=== PATIENT | male | born 1980 | race Caucasian/White ===

== ENCOUNTER 2017-09-26 21:33 | Emergency (ER) | payer MEDICARE, MEDICAID, SELFPAY ==
[2017-09-26 21:34] VITALS: BP 183/122; PULSE 98; RESP 20; TEMP 37.2; O2SAT 98
[2017-09-26 21:57] LABS: Bacteria 0 SEEN /hpf (None Seen); Red Blood Cells-Urine 0 SEEN /hpf (0-5); Squamous Epithelial Cells - UA 0 SEEN /hpf (0-5)
[2017-09-26 22:04] LABS: Color, Urine Yellow (Yellow); Glucose, Dipstick Normal (Normal); Ketone-Dipstick 5 mg/dl (Negative); Leukocyte Esterase-Dipstick 100 /ul (Negative); Nitrite-Dipstick Negative (Negative); Occult Blood-Urine 10 /ul (Negative); Protein-Dipstick 15 mg/dl (Negative); Specific Gravity, Urine 1.015 (1.002-1.030); Urine Bilirubin Dipstick Negative (Negative); Urine Clarity Sl. Cloudy (Clear); Urine Urobilinogen Normal (Normal); Urine pH 6.5 (5.0 - 8.0)
[2017-09-26 22:12] LABS: Mucous, Urine RARE /hpf (<or=2+)
[2017-09-26 22:13] LABS: Hyaline Cast 0-5 SEEN /lpf (0-5)
[2017-09-26 22:14] LABS: White Blood Cells 0-5 SEEN /hpf (0-5)
--- NOTE | 2017-09-26 22:26 | CT_ITS ---
STUDY: CT ABDOMEN AND PELVIS WITHOUT CONTRAST REASON FOR EXAM: Male, 37 years old. RIGHT SIDED ABD PAIN X SEVERAL DAYS, HX KS, HTN, GB RADIATION DOSAGE (If Supplied By Facility): CTDIvol = ( 10.20 ) mGy, DLP = ( 530.21 ) mGycm TECHNIQUE: Transaxial images were obtained from the dome of the diaphragm to the symphysis pubis without oral contrast, and without intravenous contrast. Sagittal and coronal images were reconstructed. Individualized dose optimization techniques were used for this CT. COMPARISON: CT Abdomen/Pelvis Jul 23 2017 11:34pm FINDINGS: The visualized lung bases are unremarkable. The visualized portions of the heart are within normal limits. Normal liver. There are surgical clips in the gallbladder fossa consistent with a prior cholecystectomy. Normal spleen. Normal pancreas. Normal bilateral adrenal glands. Normal right kidney. Normal left kidney. Normal visualized stomach. Normal small intestine. There is wall thickening of the rectosigmoid colon. There is also questionable inflammation around the colon. This can suggest a colitis. This can also suggest incomplete distension of the colon. There is non-visualization of the appendix. Stool throughout the colon. Normal abdominal aorta. Normal inferior vena cava. Normal retroperitoneum. Normal urinary bladder. There are prostatic calcifications. There is a small umbilical hernia containing fat. Normal osseous structures. CT/Abdomen/Pelvis without Cont IMPRESSION: There is wall thickening of the rectosigmoid colon. There is also questionable inflammation around the colon. This can suggest a colitis. This can also suggest incomplete distension of the colon. Constipation. Cholecystectomy. There is an umbilical hernia containing fat. There is no bowel involvement. There is no incarceration. There is no findings suggesting that this is causing a bowel obstruction. Electronically Signed: Misbah Eaton MD at 23:38 EDT , Service support ,
--- NOTE | 2017-09-26 22:28 | ED.VISSUMM ---
- ER Visit Summary Date of Service: 09/26/17 Chief Complaint: Right flank pain History of Present Illness: The patient is a 37 M presenting with right flank pain ?2-3 days. Patient has history of kidney stones and states this feels similar. He has nausea with no vomiting. He denies blood in his urine. He states he has tried ibuprofen, Tylenol at home with no relief. He states he has required lithotripsy in the past. No other complaints. Physical Examination: Vitals are stable. Patient is afebrile. Alert no acute distress. HEENT exam is unremarkable. Neck is supple. Lungs are clear and equal bilaterally. Heart is regular rate and rhythm. Abdomen is soft right upper quadrant tenderness, no rebound or guarding Back: mild right CVA tenderness Extremities are unremarkable. Skin is warm and dry. No rash Remainder of exam is unremarkable. Emergency Department Course and Treatment: Patient is given IV fluids, Dilaudid, Zofran. CBC showed a white count of 12.5, platelets 125. This is similar to previous. Chemistries show potassium 3.4. Liver enzymes and lipase are normal. Urinalysis shows trace blood, 0-[address] abdomen pelvis shows there is wall thickening of the rectosigmoid colon. There is also questionable inflammation around the colon. This can suggest a colitis. Constipation. Cholecystectomy. There is an umbilical hernia containing fat. There is no bowel involvement. There is no incarceration. There is no findings suggesting that this is causing a bowel obstruction. Patient is resting comfortably in the emergency department. Repeat abdominal exam is soft with mild tenderness, no rebound or guarding. He is given prescription for Cipro, Flagyl, MiraLAX. Advised to follow-up with Dr. Grant his primary care physician. Advised return to ED for any worsening complaints. Disposition: Discharge home Impression: Colitis, constipation This note was generated with [employer] dictation software. It may contain incorrect words, spelling, and punctuation that were not noted in review of the chart prior to signing ED Disposition - Plan for ED Patient: Disposition: Home or Assisted Living Chief Complaint: Flank Pain Instructions: ED Constipation Prescriptions: Metronidazole [Flagyl] 500 mg PO Q8 #21 tablet Polyethylene Glycol 3350 [Miralax] 17 gm PO DAILY #10 packet Ciprofloxacin [Cipro] 500 mg PO BID #14 tablet Referrals: Ghassan Coronado MD [Primary Care Provider] -
[2017-09-26 22:55] VITALS: BP 165/92; PULSE 95; RESP 14; O2SAT 99
[2017-09-26 22:56] LABS: Absolute Lymphocyte Count 2.01 X10^3/ul (0.83-4.51); Basophil# 0.03 X10^3/uL; Basophil% 0.2 % (0-1); Eosinophil# 0.43 X10^3/uL; Eosinophils% 3.4 % (0-5); Hematocrit 44.4 % (40-54); Hemoglobin 14.5 g/dl (13.0-16.5); Lymphocyte # 2.01 X10^3/ul (4.0); Mean Corp Hgb Conc 32.7 g/gl (32-36); Mean Corpuscular Hgb 30.1 pg (27.0-32.0); Mean Corpuscular Volume 92.3 fL (80-94); Monocyte# 1.07 X10^3/uL; Monocyte% 8.5 % (0-10); Neutrophil # 8.97 X10^3/uL (2.7-7.7); Neutrophil % 71.7 % (47-70); Platelet Count 125 K/mm3 (150-450); RBC Distribution Width CV 14.5 % (11.6-14.6); RBC Distribution Width SD 49.2 fl (35.1-43.9); Red Blood Count 4.81 M/mm3 (4.6-6.2); White Blood Count 12.5 K/mm3 (4.4-11.0)
[2017-09-26 22:57] LABS: Differential Indicated SCAN CRITERIA MET; Mean Platelet Vol. 14.1 fl (6.2-12.0); POSITIVE COUNT NO; POSITIVE DIFFERENTIAL NO; POSITIVE MORPHOLOGY YES
[2017-09-26 22:59] LABS: AST(SGOT) 9 U/L (15-37); Alanine Aminotransfer ALT/SGPT 21 U/L (16-61); Albumin, Serum 3.9 g/dL (3.2-5.0); Alkaline Phosphatase 87 U/L (45-117); Anion Gap 7 (5-15); BUN 7 mg/dL (7-18); Calcium,Total 8.3 mg/dL (8.5-10.1); Chloride 104 mmol/L (98-107); Creatinine, Serum 0.87 mg/dL (0.70-1.30); EST Glomerular Filtration Rate 104 mL/min (>60); Est Glom Filt Rate - Afr Amer 126 mL/min (>60); Estimated Creatinine Clearance 115.12 ml/min; Globulin 3.9 g/dL (2.2-4.2); Glucose 88 mg/dL (74-106); Lipase 106 U/L (73-393); Potassium 3.4 mmol/L (3.5-5.1); Protein, Total 7.8 g/dL (6.4-8.2); Sodium Level 141 mmol/L (136-145)
[2017-09-26] MEDS: Ondansetron 4 MG/2 ML Vial IV (23:03)
[2017-09-26] MEDS: HYDROmorphone 1 MG/ML Syringe 0.5 MG IV (23:03)
[2017-09-26] MEDS: 0.9% Normal Saline 1,000 ML 250 ML IV (23:03)
--- NOTE | 2017-09-26 23:44 | ED.RN ---
PT RINGS OUT REQUESTING PAIN MEDICATION, DR. MEEKS MADE AWARE.
--- NOTE | 2017-09-27 | ED.DEP ---
ED Disposition - Plan for ED Patient: Chief Complaint: Flank Pain Instructions: ED Constipation Prescriptions: Metronidazole [Flagyl] 500 mg PO Q8 #21 tablet Polyethylene Glycol 3350 [Miralax] 17 gm PO DAILY #10 packet Ciprofloxacin [Cipro] 500 mg PO BID #14 tablet Referrals: Ghassan Coronado MD [Primary Care Provider] -
[2017-09-27] MEDS: Ciprofloxacin 500 MG Tablet PO (00:11)
[2017-09-27 00:13] VITALS: PULSE 89; RESP 14; O2SAT 97
== END 2017-09-27 00:14 | disposition home or self-care (01) ==
PROVIDERS: Emergency Provider Emergency Medicine; Family Provider Family Medicine; PCP Family Medicine
DX: K52.9 Noninfective gastroenteritis and colitis, unspecified (principal); K59.00 Constipation, unspecified; K42.9 Umbilical hernia without obstruction or gangrene; Z87.442 Personal history of urinary calculi; Z72.0 Tobacco use
CPT/HCPCS: 74176; 80053; 81001; 83690; 85025; 96361; 96374; 96375; 99284; J7030; A4216; J2405

== ENCOUNTER 2017-12-17 11:55 | Emergency (ER) | payer MEDICARE, MEDICAID, SELFPAY ==
--- NOTE | 2017-12-17 11:55 | DT_ITS ---
This patient was seen during an EMR downtime December 17, 2017 - December 24, 2017. This patient may have a combination of paper and electronic documentation or all paper documentation. All documentation is viewable within the e-chart portion of [employer] for each patient visit.
--- NOTE | 2017-12-17 13:52 | CT_ITS ---
STUDY: CT ABDOMEN AND PELVIS WITHOUT CONTRAST REASON FOR EXAM: Male, 37 years old. Left flank pain. RADIATION DOSAGE (If Supplied By Facility): CTDIvol = ( 14.65 ) mGy, DLP = ( 783.16 ) mGycm TECHNIQUE: Transaxial images were obtained from the dome of the diaphragm to the symphysis pubis without oral contrast, and without intravenous contrast. Sagittal and coronal images were reconstructed. Individualized dose optimization techniques were used for this CT. COMPARISON: September 26, 2017 FINDINGS: There is minimal stable bibasilar atelectasis and/or scarring. The visualized portions of the heart are within normal limits. Normal liver. There are surgical clips in the gallbladder fossa consistent with a prior cholecystectomy. Normal spleen. Normal pancreas. Normal bilateral adrenal glands. Normal right kidney. Normal left kidney. Normal visualized stomach. Normal small intestine. Normal colon. The appendix appears to be surgically absent. Normal abdominal aorta. Normal inferior vena cava. Normal retroperitoneum. Normal urinary bladder. Normal abdominal wall. Normal osseous structures. CT/Abdomen/Pelvis without Cont IMPRESSION: No acute intra-abdominal process. Electronically Signed: Natalie Holder MD at 16:51 EDT Tel , Service support ,
[2017-12-20 11:02] LABS: Anion Gap 7 (5-15); BUN 11 mg/dL (7-18); BUN/Creat Ratio 13.3 RATIO (10-20); Calcium,Total 8.8 mg/dL (8.5-10.1); Chloride 105 mmol/L (98-107); Creatinine, Serum 0.83 mg/dL (0.70-1.30); EST Glomerular Filtration Rate 110 mL/min (>60); Est Glom Filt Rate - Afr Amer 133 mL/min (>60); Glucose 86 mg/dL (74-106); Potassium 3.7 mmol/L (3.5-5.1); Sodium Level 143 mmol/L (136-145)
[2017-12-20 16:01] LABS: Basophil% 0.4 % (0-1); Differential Indicated SCAN CRITERIA MET; Hematocrit 46.7 % (40-54); Hemoglobin 15.6 g/dl (13.0-16.5); Lymphocyte % 23.5 % (19-41); Mean Corp Hgb Conc 33.4 g/gl (32-36); Mean Corpuscular Hgb 30.8 pg (27.0-32.0); Mean Corpuscular Volume 92.3 fL (80-94); Mean Platelet Vol. 14.8 fl (6.2-12.0); Monocyte% 12.5 % (0-10); Neutrophil % 57.6 % (47-70); POSITIVE COUNT YES; POSITIVE DIFFERENTIAL NO; POSITIVE MORPHOLOGY YES; Platelet Count 92 K/mm3 (150-450); RBC Distribution Width CV 14.5 % (11.6-14.6); RBC Distribution Width SD 47.5 fl (35.1-43.9); White Blood Count 7.7 K/mm3 (4.4-11.0)
[2017-12-20 16:02] LABS: Absolute Lymphocyte Count 1.82 X10^3/ul (0.83-4.51); Absolute Neutrophil Count 4.5 X10^3/uL (2.0-7.7); Basophil# 0.03 X10^3/uL; Eosinophil# 0.46 X10^3/uL; Lymphocyte # 1.82 X10^3/ul (4.0); Monocyte# 0.97 X10^3/uL; Neutrophil # 4.45 X10^3/uL (2.7-7.7)
[2017-12-20 18:10] LABS: Bacteria 0 SEEN /hpf (None Seen); Mucous, Urine 0 SEEN /hpf (<or=2+); Red Blood Cells-Urine 0 SEEN /hpf (0-5); White Blood Cells 0 SEEN /hpf (0-5)
[2017-12-20 18:24] LABS: Color, Urine Yellow (Yellow); Glucose, Dipstick NEGATIVE (Normal); Ketone-Dipstick Negative (Negative); Leukocyte Esterase-Dipstick Negative /ul (Negative); Nitrite-Dipstick Negative (Negative); Occult Blood-Urine Negative /ul (Negative); Protein-Dipstick 30 mg/dl (Negative); Squamous Epithelial Cells - UA 0-5 SEEN /hpf (0-5); Urine Bilirubin Dipstick Negative (Negative); Urine Clarity Clear (Clear); Urine Urobilinogen Normal (Normal)
== END 2017-12-17 14:44 | disposition home or self-care (01) ==
LOC: ED 12-19 12:25
PROVIDERS: Emergency Provider Emergency Medicine; Family Provider Family Medicine; PCP Family Medicine
DX: M54.5 Low back pain (principal); I10 Essential (primary) hypertension; E03.9 Hypothyroidism, unspecified; F32.9 Major depressive disorder, single episode, unspecified; F17.210 Nicotine dependence, cigarettes, uncomplicated; Z87.442 Personal history of urinary calculi; Z79.899 Other long term (current) drug therapy
CPT/HCPCS: 36415; 74176; 80048; 81001; 85025; 96374; 96375; 99283; J7030; A4216; J2405

== ENCOUNTER 2018-12-17 11:24 | Emergency (ER) | payer MEDICARE, MEDICAID, SELFPAY ==
[2018-12-17 11:26] VITALS: BP 165/115; PULSE 109; RESP 16; TEMP 36.1; O2SAT 99; BMI 28.0
--- NOTE | 2018-12-17 11:32 | CT_ITS ---
STUDY: CT ABDOMEN AND PELVIS WITHOUT CONTRAST REASON FOR EXAM: Male, 38 years old. Right flank pain radiating anteriorly. RADIATION DOSAGE (If Supplied By Facility): CTDIvol = ( 13.60 ) mGy, DLP = ( 733.94 ) mGycm TECHNIQUE: Transaxial images were obtained from the dome of the diaphragm to the symphysis pubis without oral contrast, and without intravenous contrast. Sagittal and coronal images were reconstructed. Individualized dose optimization techniques were used for this CT. COMPARISON: Comparison is made with prior study dated December 17, 2017. FINDINGS: There now is evidence of a 1.3 cm x 3.1 cm inhomogeneous nodular density along the medial aspect of the lingular segment of the left upper lobe. This abuts the mediastinum. This may represent an area of scarring although a mass lesion cannot be excluded. The visualized portions of the heart are within normal limits. Normal liver. There are surgical clips in the gallbladder fossa consistent with a prior cholecystectomy. Normal spleen. Normal pancreas. Normal bilateral adrenal glands. There is fullness of the right renal pelvis. No liliam hydronephrosis is seen. A punctate calculus is seen in the posterior midpole calyx of the left kidney. Normal visualized stomach. Normal small intestine. Normal colon. There are surgical clips in the region of the appendix consistent with a prior appendectomy. Normal abdominal aorta. Normal inferior vena cava. Normal retroperitoneum. The urinary bladder is only partially filled. There is evidence of a bladder wall thickening. The prostate measures 2.4 cm x 4.7 cm. There is a small umbilical hernia containing fat. Small bilateral inguinal hernias containing fat. Normal osseous structures. CT/Abdomen/Pelvis without Cont IMPRESSION: No evidence of obstructive uropathy. 1.3 cm x 3.1 cm inhomogeneous nodular density in the posterior medial aspect of the lingular segment of the left upper lobe. Follow-up is recommended. Electronically Signed: Reza Zhou, at 12:46 EDT , Service support ,
--- NOTE | 2018-12-17 11:39 | ED.DCSUM_ITS ---
History of Present Illness Chief Complaint: Flank Pain Informant: Patient Onset: Days - Several days prior to presentation Context: Sudden Onset Timing: Continuous Quality: Sharp Location: Right flank pain radiating to the right lower quadrant Current Severity: Moderate Maximum Severity: Severe Worsened by: Nothing Relieved by: Nothing Associated Symptoms: Dysuria Narrative: Patient is a 38-year-old male presents with abrupt onset of right flank pain rating anteriorly. Associate with nausea without vomiting diarrhea. He denies hematemesis or melena. He denies hematuria. He does report dysuria and frequency. He states the pain is similar to ureteral stone, which required lithotripsy many years ago. He denies history of inflammatory bowel disorder. He denies change in bowels i.e. consistency, frequency, caliber or color he denies history of STI. He denies testicular pain. He denies mass or bulge in the right inguinal area. He denies history of hernia. Prior similar symptoms: Yes - Ureteral lithiasis Recent Illness/Hospitalization: No - Past Medical History (1) Appendicitis Status: Acute (2) DJD (degenerative joint disease) Status: Chronic (3) Kidney stone Status: Chronic Past Medical History - Allergies and Home Meds Allergies/Adverse Reactions: Allergies fentanyl Adverse Reaction (Verified 12/17/18 11:24) Other ketorolac [From Toradol] Adverse Reaction (Verified 12/17/18 11:24) HEADACHES IF GIVEN TO MUCH tramadol [From Ultram] Adverse Reaction (Verified 12/17/18 11:24) HEADACHES IF GIVEN TO MUCH Primary Care Physician: Ghassan Coronado MD [Primary Care Provider] - Prior records reviewed: Yes Surgical History: cholecystectomy Lives: Spouse/ Significant Other Smoking Status: Current every day smoker Alcohol: Rare - Family History Maternal Family History: Reports: No pertinent history Review of Systems General: Denies: Chills, Fever, Sweats Eyes: Denies: Visual changes - bilaterally, Diplopia ENT: Denies: Rhinorrhea, Sore throat Cardiovascular: Denies: Chest pain, Palpitations Respiratory: Denies: Dyspnea, Cough, Dyspnea on exertion Gastrointestinal: Reports: Abdominal pain, Nausea Genitourinary: Denies: Dysuria, Hematuria, Frequency Musculoskeletal: Reports: Back pain - Right flank. Denies: Myalgias, Arthralgias, Neck pain, Swelling, Extremity Pain Skin: Denies: Rash, Wounds Neurological: Denies: Headache, Weakness, Numbness Hematologic: Denies: Easy bruising, Easy bleeding Allergy: Denies: Uticaria, Swelling of the mouth Physical Exam Vital Signs/Narrative: Vital Signs Temp Pulse Resp BP Pulse Ox 12/17/18 11:26 97 F L 109 H 16 165/115 H 99 Inital Vital Signs reviewed: Yes General: Well nourished, Well developed, No Acute Distress Head: Normocephalic, Atraumatic Eyes: Perrl, EOMI ENT: Moist mucous membranes, No rhinorrhea Neck: Supple, Nontender Cardiovascular: Regular rate, Regular rhythm, No murmurs Respiratory: No distress, CTA bilaterally, Chest nontender Abdomen: Soft, Nondistended, Normal bowel sounds, No masses, Tender - Tenderness to deep palpation over the right kidney.. Negative for: Nontender Back: CVA tenderness - Equivocal right CVA tenderness. Negative for: Nontender, Normal Inspection, Spinal tenderness, - Extremities: Nontender, No edema Skin: Normal color, No rash, No Trauma. Negative for: Cyanosis, Diaphoresis, Jaundice Neurological: Alert, Oriented x3, Cranial nerves II-XII grossly intact, Normal Strength, Normal Sensation, Normal Gait Psychological: Normal affect, Normal Mood Diagnostic/Tx/Re-eval Impressions Abdomen/Pelvis CT 12/17/18 11:32 IMPRESSION: No evidence of obstructive uropathy. 1.3 cm x 3.1 cm inhomogeneous nodular density in the posterior medial aspect of the lingular segment of the left upper lobe. Follow-up is recommended. Electronically Signed: Reza Zhou, at 12:46 EDT , Service support , 12/17/18 11:32 Abdomen/Pelvis without Cont [CT] Stat Laboratory Results 12/17/18 12/17/18 12/17/18 11:35 11:38 11:38 WBC 9.7 RBC 5.29 Hgb 16.4 Hct 48.4 MCV 91.5 MCH 31.0 MCHC 33.9 RDW 14.3 RDW Differential 48.3 H Plt Count 122 L MPV 13.5 H Immature Gran % (Auto) 0.400 Neut % (Auto) 61.2 Lymph % (Auto) 22.5 [place] % (Auto) 10.0 Eos % (Auto) 5.2 H Baso % (Auto) 0.7 Absolute Neuts (auto) 5.9 Absolute Lymphs (auto) 2.17 Total Counted Not Reportable Sodium 139 Potassium 3.9 Chloride 103 Carbon Dioxide 29.0 Anion Gap 7 BUN 8 Creatinine 0.91 Estim Creat Clear Calc 108.99 Est GFR (MDRD) Af Amer 119 Est GFR (MDRD) Non-Af 98 BUN/Creatinine Ratio 8.8 L Glucose 87 Calcium 8.8 Urine Color Yellow Urine Clarity Clear Urine pH 7.0 Ur Specific [place] 1.010 Urine Protein 15 H Urine Glucose (UA) Normal Urine Ketones Negative Urine Occult Blood Negative Urine Nitrite Negative Urine Bilirubin Negative Urine Urobilinogen Normal Ur Leukocyte Esterase Negative Urine RBC 0 SEEN Urine WBC 0 SEEN Ur Squamous Epith Cells 0 SEEN Urine Bacteria 0 SEEN Urine Mucus 0 SEEN - Medical Decision Making Differential diagnosis would include ureterolithiasis, inflammatory bowel disease, pyelonephritis, STI. Patient is status post appendectomy. To evaluate patient's symptoms CT of the abdomen pelvis without contrast was ordered as well as basic metabolic panel to assess renal function and electrolytes, CBC to assess white count and H&H as well as UA to evaluate for infection. If initial work-up is negative will send urine for chlamydia and gonorrhea. Patient's abdominal portion is negative. There is a 1.3 x 3.1 inhomogeneous nodule noted left lower lobe near the lingular segment. This will need follow- up. Patient was referred to Dr. Giraldo. Because of his abdominal pain is unknown. ED Disposition - Plan for ED Patient: Disposition: Home or Assisted Living Diagnosis: Acute right flank pain, Right-sided abdominal pain of unknown cause, Pulmonary nodule seen on imaging study Instructions: ED Flank Pain Uncertain Cause, ED Nodule Solitary Pulmonary Referrals: Ghassan Coronado MD [Primary Care Provider] - Frankie Giraldo DO [STAFF PHYSICIAN] - 5-7 Days Additional Instructions: The cause of your right flank and right abdominal pain is unknown. A nodule was found left side of your lower lung. You were referred to Dr. Frankie Giraldo for further testing.
[2018-12-17 11:46] LABS: Absolute Lymphocyte Count 2.17 X10^3/ul (0.83-4.51); Absolute Neutrophil Count 5.9 X10^3/uL (2.0-7.7); Basophil# 0.07 X10^3/uL; Basophil% 0.7 % (0-1); Eosinophils% 5.2 % (0-5); Hematocrit 48.4 % (40-54); Hemoglobin 16.4 g/dl (13.0-16.5); Lymphocyte # 2.17 X10^3/ul (4.0); Lymphocyte % 22.5 % (19-41); Mean Corp Hgb Conc 33.9 g/gl (32-36); Mean Corpuscular Volume 91.5 fL (80-94); Mean Platelet Vol. 13.5 fl (6.2-12.0); Monocyte# 0.97 X10^3/uL; Neutrophil # 5.91 X10^3/uL (2.7-7.7); Neutrophil % 61.2 % (47-70); POSITIVE COUNT NO; POSITIVE DIFFERENTIAL NO; POSITIVE MORPHOLOGY NO; Platelet Count 122 K/mm3 (150-450); RBC Distribution Width CV 14.3 % (11.6-14.6); RBC Distribution Width SD 48.3 fl (35.1-43.9); Red Blood Count 5.29 M/mm3 (4.6-6.2); White Blood Count 9.7 K/mm3 (4.4-11.0)
[2018-12-17] MEDS: Ondansetron 4 MG/2 ML Vial IV (11:47)
[2018-12-17] MEDS: 0.9% Normal Saline 1,000 ML 250 ML IV (11:47)
[2018-12-17] MEDS: Ketorolac 30 MG/ML Syringe 15 MG IV (11:48)
[2018-12-17 11:59] LABS: Anion Gap 7 (5-15); BUN 8 mg/dL (7-18); BUN/Creat Ratio 8.8 RATIO (10-20); Calcium,Total 8.8 mg/dL (8.5-10.1); Chloride 103 mmol/L (98-107); Creatinine, Serum 0.91 mg/dL (0.70-1.30); EST Glomerular Filtration Rate 98 mL/min (>60); Est Glom Filt Rate - Afr Amer 119 mL/min (>60); Estimated Creatinine Clearance 108.99 ml/min; Glucose 87 mg/dL (74-106); Potassium 3.9 mmol/L (3.5-5.1); Sodium Level 139 mmol/L (136-145)
[2018-12-17 12:02] LABS: Bacteria 0 SEEN /hpf (None Seen); Mucous, Urine 0 SEEN /hpf (<or=2+); Red Blood Cells-Urine 0 SEEN /hpf (0-5); Squamous Epithelial Cells - UA 0 SEEN /hpf (0-5); White Blood Cells 0 SEEN /hpf (0-5)
[2018-12-17 12:04] LABS: Color, Urine Yellow (Yellow); Glucose, Dipstick Normal (Normal); Ketone-Dipstick Negative (Negative); Leukocyte Esterase-Dipstick Negative /ul (Negative); Nitrite-Dipstick Negative (Negative); Occult Blood-Urine Negative /ul (Negative); Protein-Dipstick 15 mg/dl (Negative); Urine Bilirubin Dipstick Negative (Negative); Urine Clarity Clear (Clear); Urine Urobilinogen Normal (Normal)
[2018-12-17 13:07] VITALS: BP 172/125; BP 176/123
[2018-12-17 13:08] VITALS: BP 176/125; BP 182/119; PULSE 91; RESP 18; O2SAT 100
--- NOTE | 2018-12-17 13:08 | ED.RN ---
BP CHECKED IN BOTH ARMS, ALL READINGS OUTSIDE NORMAL LIMITS, DR HUA NOTIFIED. WILL CONTINUE TO MONITOR.
[2018-12-17 13:42] VITALS: BP 186/124; BP 188/125; PULSE 89; RESP 18; O2SAT 100
[2018-12-17] MEDS: cloNIDine HCl 0.1 MG Tablet 0.2 MG PO (13:59)
--- NOTE | 2018-12-17 14:12 | CT_ITS ---
STUDY: CT CHEST WITH CONTRAST REASON FOR EXAM: Male, 38 years old. Lung nodule seen on CT RADIATION DOSAGE (If Supplied By Facility): CTDIvol = ( 16.72 ) mGy, DLP = ( 613.11 ) mGycm TECHNIQUE: Transaxial imaging was performed following intravenous administration of 100 IV Isovue 370. Multiplanar coronal and sagittal images were reformatted. Individualized dose optimization techniques were used for this CT. COMPARISON: Lung bases April 07, [address] scan abdomen, September 26, 2017, December 17, 2017 and December 17, 2018 FINDINGS: There is a pattern of groundglass opacities suggestive of areas of air trapping. Within the left lingula there is a lobulated nodular density measuring 1.3 x 3.1 x 2.1 cm. This sits right at the edge of the diaphragm and the left side pericardial fat. There is mild cardiac enlargement There is a 9.9 mm AP window lymph node. There is a subcarinal lymph node measuring 9.3 mm. Normal hilar regions. Normal enhanced pulmonary arteries. Normal aorta arch and descending thoracic aorta. There are multi-level degenerative changes of the thoracic spine. The liver is enlarged and fatty infiltrated. The gallbladder is been removed. There is moderate splenomegaly. There is a anteriorly located splenule measuring 1.2 cm. There is postoperative change in the gallbladder fossa status post cholecystectomy. CT/Chest WITH Contrast IMPRESSION: There is a newly visualized nodular density within the low aspect of the lingula. In the absence of infectious symptoms as follows into the range of suspicious for possible neoplasm given the size and nodular appearance recommend consideration for further evaluation with PET scan. There is a pattern of air trapping in the lungs which is suggestive of underlying chronic obstructive pulmonary disease. Mild hepatomegaly with hepatic steatosis Moderate splenomegaly. Spleen measures 13.2 x 13.0 cm Status post cholecystectomy. Mild cardiac enlargement. Electronically Signed: Maribell Johnson MD at 15:42 EDT Tel , Service support ,
--- NOTE | 2018-12-17 14:21 | ED.RN ---
PHONE CALL FOR PT TO F/U WITH CHARRER IS SundayDECEMBER 24 AT 1045. PT AND HIS ARE AWARE.
[2018-12-17 14:51] VITALS: BP 173/118; PULSE 87; RESP 18; O2SAT 97
[2018-12-17] MEDS: cloNIDine HCl 0.1 MG Tablet PO (15:10)
--- NOTE | 2018-12-17 15:51 | ED.VISSUMM ---
- ER Visit Summary Date of Service: 12/17/18 Chief Complaint: [] History of Present Illness: The patient is a 38 M [] Physical Examination: [] Test Results: [] Emergency Department Course and Treatment: [] Treatment Plan: [] Disposition: [] Impression: [] This note was generated with [employer] dictation software. It may contain incorrect words, spelling, and punctuation that were not noted in review of the chart prior to signing ED Disposition - Plan for ED Patient: Disposition: Home or Assisted Living Diagnosis: Acute right flank pain, Right-sided abdominal pain of unknown cause, Pulmonary nodule seen on imaging study, Accelerated hypertension Instructions: ED Flank Pain Uncertain Cause, ED Nodule Solitary Pulmonary, ED Hypertension New Begin Tx Prescriptions: Lisinopril [Prinivil] 10 mg PO DAILY #30 tablet Referrals: Frankie Giraldo DO [STAFF PHYSICIAN] - 5-7 Days Ghassan Coronado MD [Primary Care Provider] - 1-2 Weeks Additional Instructions: The cause of your right flank and right abdominal pain is unknown. A nodule was found left side of your lower lung. You were referred to Dr. Frankie Giraldo for further testing. Prescription was electronically transmitted to your designated pharmacy of choice.
--- NOTE | 2018-12-17 15:54 | ED.DCSUM_ITS ---
- ER Visit Summary Date of Service: 12/17/18 Chief Complaint: [] History of Present Illness: The patient is a 38 M [] Physical Examination: [] Test Results: [] Emergency Department Course and Treatment: [] Treatment Plan: [] Disposition: [] Impression: [] This note was generated with [employer] dictation software. It may contain incorrect words, spelling, and punctuation that were not noted in review of the chart prior to signing ED Disposition - Plan for ED Patient: Disposition: Home or Assisted Living Diagnosis: Acute right flank pain, Right-sided abdominal pain of unknown cause, Pulmonary nodule seen on imaging study, Accelerated hypertension Instructions: ED Flank Pain Uncertain Cause, ED Nodule Solitary Pulmonary, ED Hypertension New Begin Tx Prescriptions: Lisinopril [Prinivil] 10 mg PO DAILY #30 tablet Referrals: Frankie Giraldo DO [STAFF PHYSICIAN] - 5-7 Days Ghassan Coronado MD [Primary Care Provider] - 1-2 Weeks Additional Instructions: The cause of your right flank and right abdominal pain is unknown. A nodule was found left side of your lower lung. You were referred to Dr. Frankie Giraldo for further testing. Prescription was electronically transmitted to your designated pharmacy of choice.
[2018-12-17 16:08] VITALS: BP 169/118; PULSE 87; RESP 18; O2SAT 97
== END 2018-12-17 16:08 | disposition home or self-care (01) ==
PROVIDERS: Emergency Provider Emergency Medicine; Family Provider Family Medicine; PCP Family Medicine
DX: R91.1 Solitary pulmonary nodule (principal); K76.0 Fatty (change of) liver, not elsewhere classified; R16.2 Hepatomegaly with splenomegaly, not elsewhere classified; I11.9 Hypertensive heart disease without heart failure; R30.0 Dysuria; R35.0 Frequency of micturition; M19.90 Unspecified osteoarthritis, unspecified site; Z87.442 Personal history of urinary calculi; Z87.19 Personal history of other diseases of the digestive system; Z90.49 Acquired absence of other specified parts of digestive tract; Z79.899 Other long term (current) drug therapy; F17.200 Nicotine dependence, unspecified, uncomplicated
CPT/HCPCS: 71260; 74176; 80048; 81001; 85025; 96361; 96374; 96375; 99285; J7030; Q9967; A4216; J2405

== ENCOUNTER → 2018-12-24 11:19 | Outpatient (CLI) | payer MEDICARE, MEDICAID, SELFPAY ==
[2018-12-24 10:28] VITALS: BMI 26.6
[2018-12-24 11:47] LABS: Absolute Lymphocyte Count 1.77 X10^3/ul (0.83-4.51); Absolute Neutrophil Count 5.9 X10^3/uL (2.0-7.7); Basophil# 0.05 X10^3/uL; Basophil% 0.5 % (0-1); Eosinophil# 0.57 X10^3/uL; Eosinophils% 6.2 % (0-5); Hemoglobin 15.9 g/dl (13.0-16.5); Lymphocyte # 1.77 X10^3/ul (4.0); Lymphocyte % 19.3 % (19-41); Mean Corp Hgb Conc 33.8 g/gl (32-36); Mean Corpuscular Hgb 30.8 pg (27.0-32.0); Mean Corpuscular Volume 91.1 fL (80-94); Monocyte# 0.82 X10^3/uL; Monocyte% 8.9 % (0-10); Neutrophil # 5.92 X10^3/uL (2.7-7.7); Neutrophil % 64.7 % (47-70); POSITIVE COUNT NO; POSITIVE DIFFERENTIAL NO; POSITIVE MORPHOLOGY NO; Platelet Count 109 K/mm3 (150-450); RBC Distribution Width CV 14.2 % (11.6-14.6); RBC Distribution Width SD 47.6 fl (35.1-43.9); Red Blood Count 5.16 M/mm3 (4.6-6.2); White Blood Count 9.2 K/mm3 (4.4-11.0)
[2018-12-24 12:07] LABS: AST(SGOT) 10 U/L (15-37); Alanine Aminotransfer ALT/SGPT 25 U/L (16-61); Albumin, Serum 3.9 g/dL (3.2-5.0); Alkaline Phosphatase 89 U/L (45-117); Bilirubin, Direct 0.08 mg/dL (0.00-0.30); Globulin 3.6 g/dL (2.2-4.2); Protein, Total 7.5 g/dL (6.4-8.2)
== END ==
PROVIDERS: Family Provider Family Medicine; PCP Family Medicine; Referring Provider Internal Medicine Critical Care Medicine; Visit Provider Internal Medicine Critical Care Medicine
DX: D69.6 Thrombocytopenia, unspecified (principal); F17.210 Nicotine dependence, cigarettes, uncomplicated
CPT/HCPCS: 36415; 80076; 85025

== ENCOUNTER → 2019-01-06 07:28 | Outpatient (CLI) | payer MEDICARE, MEDICAID, SELFPAY ==
[2018-12-24 10:28] VITALS: BMI 26.6
--- NOTE | 2019-01-06 08:15 | PET_ITS ---
EXAMINATION: FDG PET CT INDICATIONS: A 38-year-old male with reported history of pulmonary nodularity. COMPARISON EXAMINATION: CT of the chest, abdomen and pelvis reports dated 12/17/18. NON-INDEX LESION SIZE SUV INTERPRETATION Right inguinal region superficial 32.1 mm (frame 62) 3.1 May necessitate histopathologic investigation TECHNIQUE: Following the intravenous administration of 15.94 mCi of F-18 deoxyglucose via the left hand, multiplanar image acquisitions of the neck, chest, abdomen and pelvis to level of mid thigh, obtained at one hour post radiopharmaceutical administration contemporaneously interpreted with the current CT of the neck, chest, abdomen and pelvis to level of mid thigh, dated 01/06/[address] of the chest, abdomen and pelvis reports dated 12/17/18 reveal: SERUM GLUCOSE LEVEL: 90 mg/dl. HEIGHT: 69 inches. WEIGHT: 215 lbs. FINDINGS: 1. The previously defined left lower anterior lung field-lingular parenchymal density defined on CT of the chest dated 12/17/18, is not clearly delineated in the CT component of the PET CT examination dated 01/06/19. 2. Normal physiologic distribution of the radiopharmaceutical is apparent in the hepatic (3.9) and splenic parenchyma, both renal units, bladder and visualized intestinal tract. There is uniform distribution of the radiopharmaceutical concentration defined in the visualized cerebellar hemispheres and cerebral cortical structures.? Diffuse intestinal tract activity is noted throughout all four quadrants of the abdominal-pelvic retroperitoneum, mesentery consistent with normal physiologic distribution of the radiopharmaceutical. Prominent radiopharmaceutical concentration is defined in the superficial right inguinal region generating a calculated maximum standard uptake value of 3.1. The maximal axial diameter of the superficially localized soft tissue density on review of CT of the pelvis dated 01/06/19 is 32.1 mm (transverse). Pertinent CT findings are as follows. CHEST: Bilateral axillary soft tissue densities with fatty hilus formation are non-glucose avid. There are no parenchymal densities-nodules defined in the right-left hemithorax demonstrating discernible increased glucose metabolism. The previously described parenchymal density noted on CT of the chest dated 12/17/18 within the context of the lingula is not apparent on the current examination. ABDOMEN AND PELVIS: The gallbladder is surgically absent. Right-left inguinal soft tissue densities are ametabolic. Subtle dystrophic calcification is manifest within the prostate gland without evidence of quantitatively significant increased glucose metabolism. SKELETAL: Degenerative changes defined in the cervical, thoracic and lumbar spine demonstrate no evidence for glucose hypermetabolism. PET/PET/CT Tumor Base -Thigh Init IMPRESSION: 1. Increased glucose metabolism manifest in the right inguinal region may be further investigated with clinical examination and potentially histopathologic analysis secondary to the quantitative degree of uptake. 2. Anatomic stability may be ensured in the left hemithorax-lingular region with repeat CT of the thorax in three-six months. (Gab, Seminars in Thoracic and Cardiovascular Surgery 14:292, 2002). 3. The previously described parenchymal density noted on CT of the chest dated 12/17/18 is not visualized on the current CT component of the FDG PET examination as defined. Electronic Signature Narciso Mendoza D.O. Electronically Signed: Narciso Mendoza DO at 10:50 EDT Tel , Service support ,
== END ==
PROVIDERS: Family Provider Family Medicine; PCP Family Medicine; Referring Provider Internal Medicine Critical Care Medicine; Visit Provider Internal Medicine Critical Care Medicine
DX: R91.1 Solitary pulmonary nodule (principal)
CPT/HCPCS: 78815; A9552; A4216

== ENCOUNTER → 2019-01-22 11:14 | Outpatient (CLI) | payer MEDICARE, MEDICAID, SELFPAY ==
--- NOTE | 2019-01-22 09:30 | MASS_PTH ---
PATIENT: FLY ALVAREZ LOC: [facility] U#:[id number] AGE/SX: 44/M ROOM: RE01/22/[address]: Dr. Jose Pastor MD : 1980 BED: DIS: SPEC #: [id number] RECD: 01/22/19 11:06 STATUS: HELADIO HENRRY #: [id number] ISMAEL: 01/22/19 09:[address]: Jose Pastor DEPT: SURGICAL PATHOLOGY RECD BY: Nahun Coleman ENTERED: 01/22/19 14:36 SP TYPE: Mass OTHR DR: Dr. Ghassan Coronado MD Tissues: Inguinal region, NOS Procedures: Surgery Specimen Level IV HEADER OPERATION: Excision right groin mass PRE-OP DIAGNOSIS: Right groin mass TISSUE SUBMITTED: Right groin mass MICROSCOPIC DIAGNOSIS Right groin mass, excision: Consistent with ruptured epidermal inclusion cyst with extensive fibrosis, chronic inflammation and reactive changes. SJ:samia 01/23/19 MICROSCOPIC DESCRIPTION Slides are reviewed. GROSS DESCRIPTION Received in fixative is one container labeled with the patient's name and designated right groin cyst. The specimen consists of three variable sized pieces of soft tissue measuring in aggregate 3.5 x 3.5 x 2 cm. Sections of the largest piece reveal a focal area of collapsed cyst measuring 1.5 cm in greatest dimension. The entire specimen is submitted in four cassettes. / SJ:samia 01/22/19 TC:5 CPT: 11037
[2019-01-22 09:49] VITALS: BMI 26.6
== END ==
PROVIDERS: Family Provider Family Medicine; PCP Family Medicine; Visit Provider Surgery
DX: R19.09 Other intra-abdominal and pelvic swelling, mass and lump (principal)
CPT/HCPCS: 88305

== ENCOUNTER 2020-12-28 14:47 | Emergency (ER) | payer MEDICARE, MEDICAID, SELFPAY ==
[2019-01-22 09:49] VITALS: BMI 26.6
[2020-12-28 14:48] VITALS: BP 158/110; PULSE 86; RESP 16; TEMP 37; O2SAT 99; BMI 28.6
--- NOTE | 2020-12-28 15:02 | CT_ITS ---
STUDY: CT ABDOMEN AND PELVIS WITHOUT CONTRAST REASON FOR EXAM: Male, 40 years old. Pain RADIATION DOSAGE (If Supplied By Facility): CTDIvol = ( 13.06 ) mGy, DLP = ( 662.36 ) mGycm TECHNIQUE: Transaxial images were obtained from the dome of the diaphragm to the symphysis pubis without oral contrast, and without intravenous contrast. Sagittal and coronal images were reconstructed. Individualized dose optimization techniques were used for this CT. COMPARISON: None. FINDINGS: The visualized lung bases are unremarkable. The visualized portions of the heart are within normal limits. Normal liver. There are surgical clips in the gallbladder fossa consistent with a prior cholecystectomy. Normal spleen. Normal pancreas. Normal bilateral adrenal glands. Normal right kidney. Normal left kidney. Normal visualized stomach. Normal small intestine. Normal colon. There are surgical clips in the region of the appendix consistent with a prior appendectomy. Normal abdominal aorta. Normal inferior vena cava. Normal retroperitoneum. Normal urinary bladder. There is a small umbilical hernia containing fat. Normal osseous structures. CT/Abdomen/Pelvis without Cont IMPRESSION: Normal unenhanced CT of the abdomen and pelvis. Electronically Signed: Narciso Joseph MD at 15:48 EDT Tel , Service support ,
--- NOTE | 2020-12-28 15:05 | EDS_ITS ---
HPI HPI - GI History of Present Illness Chief Complaint: GI Bleed Informant: patient Narrative Narrative: Patient has had nosebleeds, epigastric pain and dark tarry stools. This is been happening intermittently for 2 weeks. He states he has been getting multiple nosebleeds without any trauma. He denies any history of this. He does have a history of thrombocytopenia per his chart but his last platelet count was 109. He has been having some epigastric pain which she states is burning in nature. The dark tarry stools occurred after the nosebleeds. He has had a history of a cholecystectomy and appendectomy. He denies any history of colonoscopies. He states he has had about a 20 pound weight loss recently as well. He denies any fevers or night sweats. [facility] Medical History (Updated 12/28/20 @ 16:[address] Isaac Norman MD) Appendicitis Diarrhea DJD (degenerative joint disease) Kidney stone Lung nodule Home Medications sertraline 100 mg PO DAILY 12/22/16 [History Last Taken Unknown] omeprazole 20 mg PO DAILY #30 capsule 12/28/20 [Rx Last Taken Unknown] Allergy/AdvReac Type Severity Reaction Status Date / Time fentanyl AdvReac Other Verified 12/28/20 14:48 ketorolac [From Toradol] AdvReac HEADACHES Verified 12/28/20 14:48 tramadol [From Ultram] AdvReac HEADACHES Verified 12/28/20 14:48 Family History Grandmother Colon cancer Father Diabetes Kidney disease Hypertension Surgical History History of appendectomy History of cholecystectomy Social History Smoking Status: Former smoker Tobacco: How many years used: 21 second hand exposure: Yes alcohol intake: never substance use type: does not use ROS ROS ED Constitutional Constitutional ED: Denies chills or fever(s) Eyes Eyes: Denies blurry vision, change in vision or diplopia ENT ENT ED: Reports other Details: Epistaxis Cardiovascular Cardiovascular: Denies chest pain or palpitations Respiratory/Chest Respiratory/Chest: Denies cough, dyspnea or sputum Gastrointestinal Gastrointestinal: Reports abdominal pain, melena and other Genitourinary Genitourinary ED: Denies dysuria, hematuria or urinary frequency Musculoskeletal Musculoskeletal: Denies back pain or neck pain Integumentary Denies change in pigmentation or rash Neurologic Neurologic: Denies headache(s), numbness or weakness Psychiatric Psychiatric: Denies anxiety or depression Endocrine Endocrinology: Denies polydipsia or polyuria EXAM Physical Exam Const Vital Signs: 12/28/20 14:48 Temperature 98.6 F Temperature Source Temporal Pulse Rate 86 Respiratory Rate 16 Blood Pressure 158/110 H Blood Pressure Mean 126 Pulse Ox 99 Oxygen Delivery Method Room Air Positive well nourished and well developed General Appearance ED: well developed and NAD HEENT Reports moist mucous membranes HEENT Narrative: There is some dried blood in the nares bilaterally. No active bleeding. normocephalic and atraumatic; Negative for tenderness Eyes PERRL and EOMs intact bilaterally Neck supple and no JVD Chest Wall Chest: Negative for tenderness Resp normal respiratory effort and clear to auscultation bilaterally Effort and Inspection: Negative for respiratory distress Cardio regular rate, regular rhythm and no murmurs Rate: regular rate Rhythm: regular rhythm GI soft to palpation and non-distended Palpation: soft and tender epigastric Back/Spine no CVA tenderness and no thoracic nor lumbar tenderness Cervical Spine: Negative for cervical spine tenderness Extremity normal to inspection and full ROM General Extremety ED: Negative for tenderness Neuro oriented x3, CN's II-XII intact bilaterally and no sensory deficits noted Sensorium / Orientation: awake and alert Motor Exam: strength 5/5 throughout Psych mental status grossly normal Skin no rashes or lesions noted MDM MDM MDM Narrative Medical decision making narrative: Patient has a white blood cell count of 12.8 and a hemoglobin of 13.8. His platelet count is 142,000. INR and PTT are normal. His electrolytes and lipase are also normal. He was given a dose of IV Protonix. However, I feel that the darker stools are likely from swallowed blood from his nosebleeds. His vital signs and hemoglobin are normal. I feel he can be treated as an outpatient. They will continue with the saline nasal spray. He will be given ENT follow-up with Dr. Arteaga. I also sent home on a PPI. Lab Data Labs: Laboratory Results - last 24 hr 12/28/20 12/28/20 12/28/20 15:23 15:23 15:23 WBC 12.8 H RBC 4.54 L Hgb 13.8 Hct 41.6 MCV 91.6 MCH 30.4 MCHC 33.2 RDW Std Deviation 46.5 H RDW Coeff of Shlomo 13.8 Plt Count 142 L MPV 14.3 H Immature Gran % (Auto) 0.500 Neut % (Auto) 75.8 H Lymph % (Auto) 14.3 L [place] % (Auto) 7.0 Eos % (Auto) 1.8 Baso % (Auto) 0.6 Absolute Neuts (auto) 9.7 H Absolute Lymphs (auto) 1.83 Nucleated RBC % 0 PT 14.0 INR 1.1 APTT 24.1 Sodium 140 Potassium 3.7 Chloride 108 H Carbon Dioxide 24.0 Anion Gap 8 BUN 20 H Creatinine 1.05 Estim Creat Clear Calc 92.58 Est GFR (MDRD) Af Amer 100 Est GFR (MDRD) Non-Af 83 BUN/Creatinine Ratio 19.0 Glucose 100 Calcium 8.9 Total Bilirubin 0.40 AST 10 L ALT 22 Alkaline Phosphatase 78 Total Protein 7.8 Albumin 3.9 Globulin 3.9 Albumin/Globulin Ratio 1.0 Lipase 108 Radiography Diagnostic Testing: Radiology Impression Abdomen/Pelvis CT 12/28/20 15:02 IMPRESSION: Normal unenhanced CT of the abdomen and pelvis. Electronically Signed: Narciso Joseph MD at 15:48 EDT Tel , Service support , Discharge Plan Triage Chief Complaint: GI Bleed ED Provider: Isaac Norman Dx/Rx/DC Orders Clinical Impression: Epistaxis, Complaint of melena Instructions: ED Epistaxis (Adult) Prescriptions: New omeprazole 20 mg capsule,delayed release(DR/EC) 20 mg PO DAILY Qty: 30 RF: 0 No Action sertraline 100 MG tablet 100 mg PO DAILY RF: 0 Primary Care Provider: Ghassan Coronado Referrals: Ghassan Coronado MD [Primary Care Provider] - Disposition Disposition: Home, self care
[2020-12-28 15:34] LABS: Absolute Lymphocyte Count 1.83 X10^3/uL (0.83-4.51); Absolute Neutrophil Count 9.7 X10^3/uL (2.0-7.7); Basophil# 0.08 X10^3/uL; Basophil% 0.6 % (0-1); Eosinophil# 0.23 X10^3/uL; Eosinophils% 1.8 % (0-5); Hematocrit 41.6 % (40-54); Hemoglobin 13.8 g/dL (13.0-16.5); Lymphocyte # 1.83 X10^3/ul (0.83-4.51); Lymphocyte % 14.3 % (19-41); Mean Corp Hgb Conc 33.2 g/dL (32-36); Mean Corpuscular Hgb 30.4 pg (27.0-32.0); Mean Corpuscular Volume 91.6 fL (80-94); Mean Platelet Vol. 14.3 fl (6.2-12.0); Monocyte# 0.89 X10^3/uL; NRBC Flagged by Analyzer 0 % (0-5); Neutrophil # 9.67 X10^3/uL (2.7-7.7); Neutrophil % 75.8 % (47-70); Platelet Count 142 K/mm3 (150-450); RBC Distribution Width CV 13.8 % (11.6-14.6); RBC Distribution Width SD 46.5 fl (35.1-43.9); Red Blood Count 4.54 M/mm3 (4.6-6.2); White Blood Count 12.8 K/mm3 (4.4-11.0)
[2020-12-28 15:36] LABS: International Normalized Ratio 1.1
[2020-12-28 15:38] LABS: Partial Thromboplast Time 24.1 Seconds (24.1-36.2)
[2020-12-28 15:42] LABS: AST(SGOT) 10 U/L (15-37); Alanine Aminotransfer ALT/SGPT 22 U/L (16-61); Albumin, Serum 3.9 g/dL (3.2-5.0); Alkaline Phosphatase 78 U/L (45-117); Anion Gap 8 (5-15); BUN 20 mg/dL (7-18); Calcium,Total 8.9 mg/dL (8.5-10.1); Chloride 108 mmol/L (98-107); Creatinine, Serum 1.05 mg/dL (0.70-1.30); EST Glomerular Filtration Rate 83 mL/min (>60); Est Glom Filt Rate - Afr Amer 100 mL/min (>60); Estimated Creatinine Clearance 92.58 ml/min; Globulin 3.9 g/dL (2.2-4.2); Glucose 100 mg/dL (74-106); Lipase 108 U/L (73-393); Potassium 3.7 mmol/L (3.5-5.1); Protein, Total 7.8 g/dL (6.4-8.2); Sodium Level 140 mmol/L (136-145)
[2020-12-28] MEDS: 0.9% Normal Saline 1,000 ML 1000 ML IV (15:52)
[2020-12-28] MEDS: Morphine 4 MG/ML Syringe IV (16:20)
== END 2020-12-28 16:22 | disposition home or self-care (01) ==
PROVIDERS: Emergency Provider Emergency Medicine; PCP Family Medicine
DX: R04.0 Epistaxis (principal); K92.1 Melena; Z87.891 Personal history of nicotine dependence; Z90.49 Acquired absence of other specified parts of digestive tract; Z79.1 Long term (current) use of non-steroidal anti-inflammatories (NSAID); Z79.899 Other long term (current) drug therapy; M19.90 Unspecified osteoarthritis, unspecified site
CPT/HCPCS: 74176; 80053; 83690; 85025; 85610; 85730; 99284; J7030; A4216; J3490

== ENCOUNTER 2021-05-03 09:59 | Emergency (ER) | payer MEDICARE, MEDICAID, SELFPAY ==
[2021-05-03 09:59] VITALS: BP 183/118; PULSE 104; RESP 19; TEMP 36.8; O2SAT 99; BMI 28.0
--- NOTE | 2021-05-03 10:38 | EDS_ITS ---
HPI History of Present Illness Chief Complaint: Flank Pain Informant: patient Narrative Narrative: Patient's had approximately 4 days of left flank pain that radiates to the left lower quadrant. It waxes and wanes but never completely goes away. He denies hematuria. He does get nauseated when the pain is bad but has not vomited. No testicular pain. No change in bowel habits. When the pain is bad it is hard to start his urine stream but otherwise he urinates normally. No fevers or chills. Nothing specifically makes this better or worse. He was seen at [place] emergency department 2 or so days ago. He states he they did blood work, urinalysis and a CAT scan. The CAT scan showed a 4 mm stone on the left does not know where. He called his follow-up with urology but cannot get in until Sunday. He states he was given Toradol and Dilaudid in the emergency department but no medicines to go. I did do an online prescribing report search. His last narcotic was back in February. The 1 before that was a year ago. He only has 2. There is no indica tion that he recently filled any controlled substance. [facility] Medical History Appendicitis Diarrhea DJD (degenerative joint disease) Kidney stone Kidney stones Lung nodule Home Medications sertraline 100 mg PO DAILY 12/22/16 [History Last Taken Unknown] lisinopril 40 mg PO DAILY 05/03/21 [History Last Taken Unknown] metoprolol succinate 200 mg PO DAILY 05/03/21 [History Last Taken Unknown] naproxen 500 mg PO BID #14 tab 05/03/21 [Rx Last Taken Unknown] ondansetron 4 mg PO Q8H PRN #10 tab 05/03/21 [Rx Last Taken Unknown] oxycodone-acetaminophen [Percocet] 1 tab PO Q6H PRN 3 Days #12 tab 05/03/21 [Rx Last Taken Unknown] tamsulosin [Flomax] 0.4 mg PO DAILY #7 cap 05/03/21 [Rx Last Taken Unknown] Allergy/AdvReac Type Severity Reaction Status Date / Time fentanyl AdvReac Other Verified 05/03/21 10:01 ketorolac [From Toradol] AdvReac HEADACHES Verified 05/03/21 10:01 tramadol [From Ultram] AdvReac HEADACHES Verified 05/03/21 10:01 Family History Grandmother Colon cancer Father Diabetes Kidney disease Hypertension Surgical History History of appendectomy History of cholecystectomy Social History Smoking Status: Current every day smoker tobacco type: cigarettes Tobacco: How many years used: 21 second hand exposure: Yes alcohol intake: never substance use type: does not use ROS ROS ED Constitutional Constitutional ED: Denies chills or fever(s) ENT ENT ED: Denies rhinorrhea or sore throat Cardiovascular Cardiovascular: Denies chest pain or palpitations Respiratory/Chest Respiratory/Chest: Denies cough or dyspnea Gastrointestinal Gastrointestinal: Reports abdominal pain and nausea; Denies constipation, diarrhea or vomiting Genitourinary Genitourinary ED: Reports other Details: See history of present illness. ; Denies hematuria Musculoskeletal Musculoskeletal: Reports back pain; Denies arthralgias or neck pain Integumentary Denies rash Neurologic Neurologic: Denies headache(s), paresthesias or weakness Endocrine Endocrinology: Denies polydipsia or polyuria Allergic/Immunologic Allergic/Immunologic ED: Denies urticaria EXAM Physical Exam Const Vital Signs: 05/03/21 09:59 05/03/21 11:24 Temperature 98.2 F Temperature Source Temporal Pulse Rate 104 H 90 Respiratory Rate 19 H 20 H Blood Pressure 183/118 H 176/120 H Blood Pressure Mean 139 138 Pulse Ox 99 95 Oxygen Delivery Method Room Air Room Air Positive well nourished and well developed General Appearance ED: well developed HEENT Reports dry mucous membranes Mouth ED: Yes dry mucous membranes Mouth: dry mucous membranes Eyes General Eye ED: Negative for pale conjunctiva or scleral icterus Neck no JVD Chest Wall inspection of chest normal Resp normal respiratory effort and clear to auscultation bilaterally Auscultation: Negative for rales, rhonchi or wheezes Cardio regular rate and regular rhythm GI normal to inspection, nondistended, normoactive bowel sounds, non-tender and no masses GI Narrative: Patient has no real change in discomfort with palpation. I feel no mass. There is certainly no rebound or guarding. Palpation: soft Back/Spine Back/Spine Narrative: He does have some mild left CVA tenderness. Extremity normal to inspection General Extremety ED: Negative for tenderness Neuro oriented x3 Sensorium / Orientation: alert Psych mental status grossly normal Skin no rashes or lesions noted and no wounds MDM MDM MDM Narrative Medical decision making narrative: Blood work shows normal white count hemoglobin. Electrolytes are overall unremarkable. Minimal decrease potassium. Urine has no red cells but does have some occult blood. No sign of infection. X-ray showed no stone visible on plain film. However, patient had recent outpatient CT that showed 4 mm stone. 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 However he is very detailed and what happened. I see nothing in his history that would make me think he is seeking pain meds. He has an appointment with a urologist in [place] on Sunday. He states he thinks the name is Lars but he is not sure. We will get him meds for pain as well as Flomax and Zofran. We will have him follow-up. Lab Data Labs: Laboratory Results - last 24 hr 05/03/21 05/03/21 05/03/21 10:35 10:35 10:50 WBC 7.3 RBC 5.09 Hgb 14.3 Hct 44.1 MCV 86.6 MCH 28.1 MCHC 32.4 RDW Std Deviation 50.7 H RDW Coeff of Shlomo 16.1 H Plt Count 93 L MPV 13.0 H Immature Gran % (Auto) 0.400 Neut % (Auto) 72.9 H Lymph % (Auto) 14.8 L [place] % (Auto) 7.4 Eos % (Auto) 4.0 Baso % (Auto) 0.5 Absolute Neuts (auto) 5.3 Absolute Lymphs (auto) 1.08 Nucleated RBC % 0 Platelet Estimate MOD DEC Plt Morphology Comment LARGE Sodium 140 Potassium 3.4 L Chloride 103 Carbon Dioxide 26.0 Anion Gap 11 BUN 7 Creatinine 0.79 Estim Creat Clear Calc 123.05 Est GFR (MDRD) Af Amer 138 Est GFR (MDRD) Non-Af 114 BUN/Creatinine Ratio 8.8 L Glucose 93 Calcium 8.5 Urine Color Yellow Urine Clarity Clear Urine pH 6.5 Ur Specific [place] 1.020 Urine Protein 15 H Urine Glucose (UA) Normal Urine Ketones 50 H Urine Occult Blood 10 H Urine Nitrite Negative Urine Bilirubin Negative Urine Urobilinogen 1 H Ur Leukocyte Esterase Negative Urine RBC 0 SEEN Urine WBC 0 SEEN Ur Squamous Epith Cells 0-5 SEEN Urine Bacteria 2+ Urine Mucus 1+ Radiography Diagnostic Testing: Clinical Impression(s) from Imaging Studies KUB X-Ray 05/03/21 11:10 IMPRESSION: Normal x-ray examination of the abdomen and pelvis. Electronically Signed: Reza Zhou MD at 11:32 EDT , Service support , Discharge Plan Triage Chief Complaint: Flank Pain ED Provider: Danny Pike Dx/Rx/DC Orders Clinical Impression: Renal colic Instructions: ED Kidney Stone w/ Colic Prescriptions: New oxycodone-acetaminophen [Percocet] 5-325 mg tablet 1 tab PO Q6H PRN (Reason: pain) 3 Days Qty: 12 RF: 0 ondansetron 4 mg tablet,disintegrating 4 mg PO Q8H PRN (Reason: nausea and vomiting) Qty: 10 RF: 0 naproxen 500 MG tablet 500 mg PO BID Qty: 14 RF: 0 tamsulosin [Flomax] 0.4 mg capsule 0.4 mg PO DAILY Qty: 7 RF: 0 No Action sertraline 100 MG tablet 100 mg PO DAILY RF: 0 metoprolol succinate 200 mg Tablet Extended Release 24 Hr 200 mg PO DAILY RF: 0 lisinopril 40 mg Tablet 40 mg PO DAILY RF: 0 Primary Care Provider: Ghassan Coronado Referrals: Ghassan Coronado MD [Primary Care Provider] - Activity Restrictions/Additional Instructions: Follow-up with your urologist on Sunday as scheduled. Disposition Disposition: Home, Self Care
[2021-05-03] MEDS: Ondansetron 4 MG/2 ML Vial IV (10:48)
[2021-05-03] MEDS: Ketorolac 15 MG/ML Vial IV (10:48)
[2021-05-03] MEDS: 0.9% Normal Saline 1,000 ML 1000 ML IV (10:48)
[2021-05-03] MEDS: HYDROmorphone 1 MG/ML Syringe IV ×2 (10:49→12:10)
[2021-05-03 10:55] LABS: Red Blood Cells-Urine 0 SEEN /hpf (0-5); White Blood Cells 0 SEEN /hpf (0-5)
[2021-05-03 10:57] LABS: Color, Urine Yellow (Yellow); Glucose, Dipstick Normal (Normal); Ketone-Dipstick 50 mg/dl (Negative); Leukocyte Esterase-Dipstick Negative /ul (Negative); Nitrite-Dipstick Negative (Negative); Occult Blood-Urine 10 /ul (Negative); Protein-Dipstick 15 mg/dl (Negative); Urine Bilirubin Dipstick Negative (Negative); Urine Clarity Clear (Clear); Urine Urobilinogen 1 mg/dl (Normal); Urine pH 6.5 (5.0 - 8.0)
[2021-05-03 11:04] LABS: Absolute Lymphocyte Count 1.08 X10^3/uL (0.83-4.51); Absolute Neutrophil Count 5.3 X10^3/uL (2.0-7.7); Basophil# 0.04 X10^3/uL; Basophil% 0.5 % (0-1); Eosinophil# 0.29 X10^3/uL; Hematocrit 44.1 % (40-54); Hemoglobin 14.3 g/dL (13.0-16.5); Lymphocyte # 1.08 X10^3/ul (0.83-4.51); Lymphocyte % 14.8 % (19-41); Mean Corp Hgb Conc 32.4 g/dL (32-36); Mean Corpuscular Hgb 28.1 pg (27.0-32.0); Mean Corpuscular Volume 86.6 fL (80-94); Monocyte# 0.54 X10^3/uL; Monocyte% 7.4 % (0-10); NRBC Flagged by Analyzer 0 % (0-5); Neutrophil # 5.31 X10^3/uL (2.7-7.7); Neutrophil % 72.9 % (47-70); POSITIVE COUNT YES; POSITIVE MORPHOLOGY YES; Platelet Count 93 K/mm3 (150-450); RBC Distribution Width CV 16.1 % (11.6-14.6); RBC Distribution Width SD 50.7 fl (35.1-43.9); Red Blood Count 5.09 M/mm3 (4.6-6.2); White Blood Count 7.3 K/mm3 (4.4-11.0)
[2021-05-03 11:05] LABS: Differential Indicated SCAN CRITERIA MET
[2021-05-03 11:06] LABS: Anion Gap 11 (5-15); BUN 7 mg/dL (7-18); BUN/Creat Ratio 8.8 RATIO (10-20); Calcium,Total 8.5 mg/dL (8.5-10.1); Chloride 103 mmol/L (98-107); Creatinine, Serum 0.79 mg/dL (0.70-1.30); EST Glomerular Filtration Rate 114 mL/min (>60); Est Glom Filt Rate - Afr Amer 138 mL/min (>60); Estimated Creatinine Clearance 123.05 ml/min; Glucose 93 mg/dL (74-106); Potassium 3.4 mmol/L (3.5-5.1); Sodium Level 140 mmol/L (136-145)
--- NOTE | 2021-05-03 11:10 | RAD_ITS ---
STUDY: X-RAY - ABDOMEN/PELVIS REASON FOR EXAM: Male, 40 years old. Left flank pain, 4mm stone by hx TECHNIQUE: Single AP view of the abdomen / pelvis. COMPARISON: None. FINDINGS: Normal visualized lung bases. There is an unremarkable bowel gas pattern. The visualized liver, spleen and kidneys are grossly normal in size and morphology. Normal soft tissue structures. Normal visualized osseous structures. RAD/Abdomen Single View (Portable) IMPRESSION: Normal x-ray examination of the abdomen and pelvis. Electronically Signed: Reza Zhou MD at 11:32 EDT , Service support ,
[2021-05-03 11:12] LABS: Bacteria 2+ /hpf (None Seen); Mucous, Urine 1+ /hpf (<or=2+); Squamous Epithelial Cells - UA 0-5 SEEN /hpf (0-5)
[2021-05-03 11:24] VITALS: BP 176/120; PULSE 90; RESP 20; O2SAT 95
[2021-05-03 11:24] LABS: Platelet Estimate MOD DEC (ADEQ); Platelet Morphology LARGE
[2021-05-03 14:35] VITALS: BP 150/80; PULSE 97; RESP 16; O2SAT 98
== END 2021-05-03 14:35 | disposition home or self-care (01) ==
PROVIDERS: Emergency Provider Emergency Medicine; PCP Family Medicine
DX: N23 Unspecified renal colic (principal); F17.210 Nicotine dependence, cigarettes, uncomplicated; Z79.899 Other long term (current) drug therapy
CPT/HCPCS: 74018; 80048; 81001; 85025; 96361; 96374; 96375; 96376; 99284; J7030; A4216; J2405

== ENCOUNTER 2021-05-11 17:30 | Emergency (ER) | payer MEDICARE, MEDICAID, SELFPAY ==
[2021-05-11 17:31] VITALS: BP 198/140; PULSE 110; RESP 18; TEMP 36.6; O2SAT 98; BMI 28.0
--- NOTE | 2021-05-11 18:00 | EDS_ITS ---
HPI History of Present Illness Chief Complaint: Complaint Narrative Narrative: 40-year-old male presenting with left-sided abdominal pain. He states that he was told he had a kidney stone, bladder thickening, prostate enlargement. Patient was initially seen at [facility] on 01 May for left-sided abdominal pain. At that point he had blood work done which was normal and a CT of the abdomen pelvis which did show his above findings. In the interim he has been back to the emergency room in [place] because he had continued pain. At that point he was given pain medication, Zofran, Flomax because he had stated at that time he was not given any medications from the i nitial visit [facility]. Patient followed up with urology on Sunday and was told again about these findings. He has been able to void. He is currently on Flomax. His urologist changed no medications. Patient states that he is going to be scheduled for a cystoscopy in a couple of weeks, but states this will be delayed because of Covid 19. Patient cannot tell me the primary urologist name and states that he saw Lars. He is able to void although he has difficulty starting a stream he does have flow afterwards. He is denying dysuria. He is not had fever or chills. He is able to eat and drink normally. Today he had one episode of diarrhea. [facility] Medical History Appendicitis Diarrhea DJD (degenerative joint disease) Kidney stone Kidney stones Lung nodule Home Medications sertraline 100 mg PO DAILY 12/22/16 [History Last Taken Unknown] lisinopril 40 mg PO DAILY 05/03/21 [History Last Taken Unknown] metoprolol succinate 200 mg PO DAILY 05/03/21 [History Last Taken Unknown] ondansetron 4 mg PO Q8H PRN #10 tab 05/03/21 [Rx Last Taken Unknown] Allergy/AdvReac Type Severity Reaction Status Date / Time fentanyl AdvReac Other Verified 05/11/21 17:34 ketorolac [From Toradol] AdvReac HEADACHES Verified 05/11/21 17:34 tramadol [From Ultram] AdvReac HEADACHES Verified 05/11/21 17:34 Family History Grandmother Colon cancer Father Diabetes Kidney disease Hypertension Surgical History History of appendectomy History of cholecystectomy Social History Smoking Status: Current every day smoker tobacco type: cigarettes Tobacco: How many years used: 21 second hand exposure: Yes alcohol intake: never substance use type: does not use ROS ROS ED Constitutional Constitutional ED: Denies fever(s) or sweats Eyes Eyes: Denies blurry vision or change in vision ENT ENT ED: Denies rhinorrhea or sore throat Cardiovascular Cardiovascular: Denies chest pain or palpitations Respiratory/Chest Respiratory/Chest: Denies cough, dyspnea or sputum Gastrointestinal Gastrointestinal: Reports abdominal pain and diarrhea; Denies constipation, nausea or vomiting Genitourinary Genitourinary ED: Denies dysuria or hematuria Musculoskeletal Musculoskeletal: Denies arthralgias or myalgias Integumentary Denies rash Neurologic Neurologic: Denies headache(s) or paresthesias EXAM Physical Exam Const Vital Signs: 05/11/21 17:31 Temperature 97.9 F Temperature Source Temporal Pulse Rate 110 H Respiratory Rate 18 Blood Pressure 198/140 H Blood Pressure Mean 159 Pulse Ox 98 Oxygen Delivery Method Room Air Positive well nourished General Appearance ED: NAD; Negative for pallor HEENT normocephalic and atraumatic Eyes PERRL and EOMs intact bilaterally Resp normal respiratory effort and clear to auscultation bilaterally Cardio regular rate and regular rhythm GI non-distended GI Narrative: Very mild left-sided abdominal pain. No left-sided CVA tenderness . Palpation: soft no CVA tenderness Extremity normal to inspection General Extremety ED: Negative for tenderness Neuro oriented x3 Sensorium / Orientation: alert Psych mental status grossly normal Skin General Skin Exam: Negative for jaundice or pallor MDM MDM MDM Narrative Medical decision making narrative: Patient presenting with left-sided flank pain. He reportedly had a previous kidney stone. I reviewed the medical record and he had a punctate nonobstructing left-sided renal calculi. He is already had blood work twice which was normal. He is already seen urology and started on Flomax. On examination he has no CVA tenderness which would indicate a kidney stone and it would be unlikely that he would develop a new kidney stone in the short amount of time. In addition to this the stone that he did have was nonobstructing and punctate. I did obtain a urinalysis which does not show any evidence of infection. I counseled the patient that I do not believe he needs another CT of the abdomen pelvis. I recommended he follow-up with urology. I offered nausea medication for him but he declined. Impression: 1. Left flank pain Lab Data Labs: Laboratory Results - last 24 hr 05/11/21 17:47 Urine Color Yellow Urine Clarity Clear Urine pH 6.0 Ur Specific [place] 1.020 Urine Protein 30 H Urine Glucose (UA) Normal Urine Ketones 5 H Urine Occult Blood 10 H Urine Nitrite Negative Urine Bilirubin 1 H Urine Urobilinogen 4 H Ur Leukocyte Esterase 25 H Urine RBC 0 SEEN Urine WBC 0-5 SEEN Ur Squamous Epith Cells 0 SEEN Urine Bacteria 0 SEEN Urine Mucus 2+ Discharge Plan Triage Chief Complaint: Complaint ED Provider: Abdiel Strong Dx/Rx/DC Orders Instructions: ED Flank Pain, Uncertain Cause Prescriptions: No Action sertraline 100 MG tablet 100 mg PO DAILY RF: 0 metoprolol succinate 200 mg Tablet Extended Release 24 Hr 200 mg PO DAILY RF: 0 lisinopril 40 mg Tablet 40 mg PO DAILY RF: 0 ondansetron 4 mg tablet,disintegrating 4 mg PO Q8H PRN (Reason: nausea and vomiting) Qty: 10 RF: 0 Primary Care Provider: Ghassan Coronado Referrals: Ghassan Coronado MD [Primary Care Provider] - Disposition Disposition: Home, Self Care
[2021-05-11 18:01] LABS: Bacteria 0 SEEN /hpf (None Seen); Red Blood Cells-Urine 0 SEEN /hpf (0-5); Squamous Epithelial Cells - UA 0 SEEN /hpf (0-5)
[2021-05-11 18:10] LABS: Color, Urine Yellow (Yellow); Glucose, Dipstick Normal (Normal); Ketone-Dipstick 5 mg/dl (Negative); Leukocyte Esterase-Dipstick 25 /ul (Negative); Nitrite-Dipstick Negative (Negative); Occult Blood-Urine 10 /ul (Negative); Protein-Dipstick 30 mg/dl (Negative); Urine Clarity Clear (Clear); Urine Urobilinogen 4 mg/dl (Normal)
[2021-05-11 18:26] LABS: Urine Bilirubin Dipstick 1 mg/dL (Negative)
[2021-05-11 18:27] LABS: Mucous, Urine 2+ /hpf (<or=2+); White Blood Cells 0-5 SEEN /hpf (0-5)
== END 2021-05-11 19:07 | disposition home or self-care (01) ==
PROVIDERS: Emergency Provider Student in an Organized Health Care Education/Training Program; PCP Family Medicine
DX: R10.9 Unspecified abdominal pain (principal); R19.7 Diarrhea, unspecified; Z87.442 Personal history of urinary calculi; F17.210 Nicotine dependence, cigarettes, uncomplicated; Z79.1 Long term (current) use of non-steroidal anti-inflammatories (NSAID)
CPT/HCPCS: 81001; 99282

== ENCOUNTER 2021-08-10 10:48 | Emergency (ER) | payer MEDICARE, MEDICAID, SELFPAY ==
[2021-08-10 10:50] VITALS: BP 189/132; PULSE 103; RESP 17; TEMP 36.9; O2SAT 100; BMI 29.5
--- NOTE | 2021-08-10 11:16 | CT_ITS ---
STUDY: CT ABDOMEN AND PELVIS WITH CONTRAST REASON FOR EXAM: Male, 40 years old. 4 day history of abdominal pain and bloody stools. RADIATION DOSAGE (If Supplied By Facility): CTDIvol = ( 17.08 ) mGy, DLP = ( 1114.42 ) mGycm TECHNIQUE: Transaxial images were obtained from the dome of the diaphragm to the symphysis pubis without oral contrast. IV 100mL [id number]-300 was administered. Sagittal and coronal images were reconstructed. Individualized dose optimization techniques were used for this CT. COMPARISON: Comparison is made with prior study dated 12/28/2020. FINDINGS: The visualized lung bases are unremarkable. The visualized portions of the heart are within normal limits. Normal liver. There are surgical clips in the gallbladder fossa consistent with a prior cholecystectomy. Normal spleen. Normal pancreas. Normal bilateral adrenal glands. Normal right kidney. Normal left kidney. Normal visualized stomach. Normal small intestine. Normal colon. There are surgical clips in the region of the appendix consistent with a prior appendectomy. There is scattered atherosclerotic calcification of the abdominal aorta, without a demonstrated aneurysm. Normal inferior vena cava. Normal retroperitoneum. Normal urinary bladder. There is a small umbilical hernia containing fat. Small bilateral inguinal hernias containing fat. Normal osseous structures. CT/Abdomen/Pelvis W IV Cont ONLY IMPRESSION: Stable examination. No acute abnormality is seen. Electronically Signed: Reza Zhou MD at 12:37 EST ,
--- NOTE | 2021-08-10 11:17 | EDS_ITS ---
HPI HPI - GI History of Present Illness Chief Complaint: Abd Pain Informant: patient Narrative Narrative: Patient presents with abdominal pain. He has a long history of having abdominal pain. However, he states that now he this is associated with occasional blood in the stool for about 4 days. He sometimes see darker stool but not melena. He sometimes sees some red spots. He has not had fevers. Most of his pain is in the periumbilical area. It also kind of moved to the epigastric area. No chest pain or trouble breathing. He has had prior cholecystectomy and appendectomy. He states he was seen at [facility] about 4 days ago but they did no blood work x-rays or any treatment or evaluation at all. Patient states he has been trying to take Motrin to make this better. He is taking at least 3 or 4-day. We discussed that this may be aggravating his stomach. [facility] Medical History Appendicitis Diarrhea DJD (degenerative joint disease) Kidney stone Kidney stones Lung nodule Home Medications sertraline 100 mg PO DAILY 12/22/16 [History Last Taken Unknown] lisinopril 40 mg PO DAILY 05/03/21 [History Last Taken Unknown] metoprolol succinate 200 mg PO DAILY 05/03/21 [History Last Taken Unknown] ondansetron 4 mg PO Q8H PRN #10 tab 05/03/21 [Rx Last Taken Unknown] omeprazole 20 mg PO BID #60 cap 08/10/21 [Rx Last Taken Unknown] Allergy/AdvReac Type Severity Reaction Status Date / Time fentanyl AdvReac Other Verified 08/10/21 10:48 ketorolac [From Toradol] AdvReac HEADACHES Verified 08/10/21 10:48 tramadol [From Ultram] AdvReac HEADACHES Verified 08/10/21 10:48 Family History Grandmother Colon cancer Father Diabetes Kidney disease Hypertension Surgical History History of appendectomy History of cholecystectomy Social History Smoking Status: Current every day smoker tobacco type: cigarettes Tobacco: How many years used: 21 second hand exposure: Yes alcohol intake: never substance use type: does not use ROS ROS ED Constitutional Constitutional ED: Denies chills or fever(s) ENT ENT ED: Denies rhinorrhea Cardiovascular Cardiovascular: Denies chest pain or palpitations Respiratory/Chest Respiratory/Chest: Denies cough or sputum Gastrointestinal Gastrointestinal: Reports abdominal pain and nausea; Denies constipation, diarrhea, melena or vomiting Genitourinary Genitourinary ED: Denies dysuria Musculoskeletal Musculoskeletal: Denies back pain Integumentary Denies rash Neurologic Neurologic: Denies headache(s) Psychiatric Psychiatric: Denies depression Endocrine Endocrinology: Denies polydipsia or polyuria Hematologic/Lymphatic Hematologic/Lymphatic: Denies easy bleeding or easy bruising Allergic/Immunologic Allergic/Immunologic ED: Denies mouth swelling or urticaria EXAM Physical Exam Const Vital Signs: 08/10/21 10:50 08/10/21 12:17 Temperature 98.4 F Temperature Source Temporal Pulse Rate 103 H Respiratory Rate 17 Blood Pressure 189/132 H 188/128 H Blood Pressure Mean 151 148 Pulse Ox 100 Oxygen Delivery Method Room Air Positive well nourished and well developed General Appearance ED: well developed and NAD HEENT Reports moist mucous membranes Eyes General Eye ED: Negative for pale conjunctiva Resp normal respiratory effort and clear to auscultation bilaterally Cardio regular rate, regular rhythm and no murmurs GI non-distended GI Narrative: Patient has mild nonfocal tenderness diffusely. But if were talking during the exam there is no objective tenderness. There is no rebound or guarding at any time. Palpation: soft Back/Spine no CVA tenderness Neuro Sensorium / Orientation: alert and oriented to person Psych mental status grossly normal Skin Rashes: no rashes MDM MDM MDM Narrative Medical decision making narrative: Patient CBC shows normal white count and hemoglobin. Platelets are minimally low. However, this is normal for the patient. Electrolytes showed no abnormalities including normal renal function. Liver function tests were normal. Lipase was normal. CAT scan of the abdomen and pelvis shows no acute abnormality. By his history and exam I think this is likely gastritis. He has mostly epigastric area discomfort. He has been taking a lot of nonsteroidals. We will encourage him not to do this. I will initiate proton pump inhibitor. I will get him dose of pantoprazole here. I initially was not able to get on the clinic thank system to review old records. I called IT and they were able to reset my system and allow me to get on. I then find that the patient was at [facility] a couple days ago like he had stated. However he had a full set of blood work and a CAT scan done at that time. When I initially talked to him, I had specifically asked him if he had blood work x-rays CAT scans or any other studies. He states that they did none of that. I explained to the patient that his work-up today is negative. I think this is likely gastritis. He needs to take his blood pressure medicine as prescribed. I will write him for proton pump inhibitor. He is encouraged not to take any nonsteroidals. He should eat low acid foods. We also had a discussion about telling the truth. It is important that he tells us the truth so we have all the information and the accurate information. This also can avoid putting him at risk for excessive studies and work-ups. We also discussed going to multiple facilities and physicians. He has multiple other visits on the system. He also got narcotics about 10 days ago. I do not think his symptoms require narcotics. Lab Data Attestation: I reviewed the patient's lab results. Labs: Laboratory Results - last 24 hr 08/10/21 08/10/21 11:40 11:40 WBC 6.8 RBC 4.64 Hgb 13.9 Hct 41.2 MCV 88.8 MCH 30.0 MCHC 33.7 RDW Std Deviation 46.5 H RDW Coeff of Shlomo 14.4 Plt Count 102 L MPV 13.5 H Immature Gran % (Auto) 0.400 Neut % (Auto) 67.0 Lymph % (Auto) 18.2 L [place] % (Auto) 8.1 Eos % (Auto) 5.6 H Baso % (Auto) 0.7 Absolute Neuts (auto) 4.5 Absolute Lymphs (auto) 1.23 Nucleated RBC % 0 Sodium 140 Potassium 3.7 Chloride 107 Carbon Dioxide 26.0 Anion Gap 7 BUN 13 Creatinine 0.83 Estim Creat Clear Calc 117.12 Est GFR (MDRD) Af Amer 130 Est GFR (MDRD) Non-Af 107 BUN/Creatinine Ratio 15.6 Glucose 96 Calcium 8.5 Total Bilirubin 0.30 AST 10 L ALT 20 Alkaline Phosphatase 69 Total Protein 7.0 Albumin 3.6 Globulin 3.4 Albumin/Globulin Ratio 1.1 Lipase 186 Radiography Diagnostic Testing: Clinical Impression(s) from Imaging Studies Abdomen/Pelvis CT 08/10/21 11:16 IMPRESSION: Stable examination. No acute abnormality is seen. Electronically Signed: Reza Zhou MD at 12:37 EST , Discharge Plan Triage Chief Complaint: Abd Pain ED Provider: Danny Pike Dx/Rx/DC Orders Clinical Impression: Abdominal pain, Acute gastritis Instructions: Abdominal Pain, ED Gastritis (Adult) Prescriptions: New omeprazole 20 mg capsule,delayed release(DR/EC) 20 mg PO BID Qty: 60 RF: 0 No Action sertraline 100 MG tablet 100 mg PO DAILY RF: 0 metoprolol succinate 200 mg Tablet Extended Release 24 Hr 200 mg PO DAILY RF: 0 lisinopril 40 mg Tablet 40 mg PO DAILY RF: 0 ondansetron 4 mg tablet,disintegrating 4 mg PO Q8H PRN (Reason: nausea and vomiting) Qty: 10 RF: 0 Primary Care Provider: Ghassan Coronado Referrals: Ghassan Coronado MD [Primary Care Provider] - 3-5 Days if not improving Disposition Disposition: Home, Self Care
[2021-08-10] MEDS: Ondansetron 4 MG/2 ML Vial IV (11:42)
[2021-08-10 11:53] LABS: Absolute Lymphocyte Count 1.23 X10^3/uL (0.83-4.51); Absolute Neutrophil Count 4.5 X10^3/uL (2.0-7.7); Basophil# 0.05 X10^3/uL; Basophil% 0.7 % (0-1); Eosinophil# 0.38 X10^3/uL; Eosinophils% 5.6 % (0-5); Hematocrit 41.2 % (40-54); Hemoglobin 13.9 g/dL (13.0-16.5); Lymphocyte # 1.23 X10^3/ul (0.83-4.51); Lymphocyte % 18.2 % (19-41); Mean Corp Hgb Conc 33.7 g/dL (32-36); Mean Corpuscular Volume 88.8 fL (80-94); Mean Platelet Vol. 13.5 fl (6.2-12.0); Monocyte# 0.55 X10^3/uL; Monocyte% 8.1 % (0-10); NRBC Flagged by Analyzer 0 % (0-5); Neutrophil # 4.51 X10^3/uL (2.7-7.7); Platelet Count 102 K/mm3 (150-450); RBC Distribution Width CV 14.4 % (11.6-14.6); RBC Distribution Width SD 46.5 fl (35.1-43.9); Red Blood Count 4.64 M/mm3 (4.6-6.2); White Blood Count 6.8 K/mm3 (4.4-11.0)
[2021-08-10] MEDS: Dicyclomine 20 MG/2 ML Vial IM (12:11)
[2021-08-10 12:14] LABS: ALB/GLOB Ratio 1.1 RATIO (0.9-2.4); AST(SGOT) 10 U/L (15-37); Alanine Aminotransfer ALT/SGPT 20 U/L (16-61); Albumin, Serum 3.6 g/dL (3.2-5.0); Alkaline Phosphatase 69 U/L (45-117); Anion Gap 7 (5-15); BUN 13 mg/dL (7-18); BUN/Creat Ratio 15.6 RATIO (10-20); Calcium,Total 8.5 mg/dL (8.5-10.1); Chloride 107 mmol/L (98-107); Creatinine, Serum 0.83 mg/dL (0.70-1.30); EST Glomerular Filtration Rate 107 mL/min (>60); Est Glom Filt Rate - Afr Amer 130 mL/min (>60); Estimated Creatinine Clearance 117.12 ml/min; Globulin 3.4 g/dL (2.2-4.2); Glucose 96 mg/dL (74-106); Lipase 186 U/L (73-393); Potassium 3.7 mmol/L (3.5-5.1); Sodium Level 140 mmol/L (136-145)
[2021-08-10 12:17] VITALS: BP 188/128
[2021-08-10 12:49] VITALS: BP 203/127; PULSE 82; RESP 16; O2SAT 99
[2021-08-10] MEDS: Labetalol (Prefilled) 20 MG/4 ML IV (12:49)
[2021-08-10 13:56] VITALS: BP 186/112
== END 2021-08-10 13:57 | disposition home or self-care (01) ==
PROVIDERS: Emergency Provider Emergency Medicine; PCP Family Medicine; Visit Provider Emergency Medicine
DX: K29.00 Acute gastritis without bleeding (principal); F17.210 Nicotine dependence, cigarettes, uncomplicated; Z87.442 Personal history of urinary calculi; Z87.19 Personal history of other diseases of the digestive system; Z90.49 Acquired absence of other specified parts of digestive tract
CPT/HCPCS: 74177; 80053; 83690; 85025; 96372; 96374; 96375; 99285; Q9967; A4216; J2405

== ENCOUNTER 2022-05-17 10:30 | Emergency (ER) | payer MEDICARE, MEDICAID, SELFPAY ==
[2022-05-17 10:31] VITALS: BP 183/112; PULSE 75; RESP 16; TEMP 36.5; O2SAT 100; BMI 29.9
--- NOTE | 2022-05-17 10:52 | ED.VIS.GI ---
HPI HPI - GI History of Present Illness Chief Complaint: Abd Pain Informant: patient Abdominal Pain/Flank Pain Onset: Weeks (2) Context: Gradual Onset Timing: Intermittent Quality: Aching and Sharp Location: RUQ and RLQ Worsened by: Nothing Relieved by: Nothing Nausea/Vomiting/Emesis GI Symptom: Positive for Nausea; Negative for Vomiting Diarrhea/Melena/Hematochezia GI Symptom: Positive for Melena and Hematochezia Onset: Weeks (2) Associated Symptoms Associated Symptoms: Positive for Dysuria; Negative for Frequency or Hematuria Narrative Narrative: Patient presents with rectal bleeding that has been intermittent over the last 2 weeks. Patient states that sometimes he notices that his stool is dark. Other times she notices that it is red. Patient admits to some right-sided abdominal pain. Patient describes it as sharp and aching. Patient states nothing makes it better nothing makes it worse. Patient denies any diarrhea. Patient admits to some nausea but denies any vomiting. Patient admits to some occasional dysuria. Patient denies any hematuria. Patient denies any back or flank pain. Patient denies any fevers or chills. PFSH PFS Medical History Appendicitis Diarrhea DJD (degenerative joint disease) Kidney stone Kidney stones Lung nodule Home Medications sertraline 100 mg tablet 100 mg PO DAILY 12/22/16 [History Last Taken Unknown] lisinopril 40 mg tablet 40 mg PO DAILY 05/03/21 [History Last Taken Unknown] metoprolol succinate 200 mg tablet,extended release 24 hr 200 mg PO DAILY 05/03/21 [History Last Taken Unknown] ondansetron 4 mg disintegrating tablet 4 mg PO Q8H PRN nausea and vomiting #10 tabs 05/03/21 [Rx Last Taken Unknown] Allergy/AdvReac Type Severity Reaction Status Date / Time fentanyl AdvReac Other Verified 05/17/22 10:30 ketorolac [From Toradol] AdvReac HEADACHES Verified 05/17/22 10:30 tramadol [From Ultram] AdvReac HEADACHES Verified 05/17/22 10:30 Family History Grandmother Colon cancer Father Diabetes Kidney disease Hypertension Surgical History History of appendectomy History of cholecystectomy Social History Smoking Status: Current every day smoker tobacco type: cigarettes Tobacco: How many years used: 21 second hand exposure: Yes alcohol intake: never substance use type: does not use ROS ROS ED Constitutional Constitutional ED: Denies chills or fever(s) Eyes Eyes: Denies blurry vision or change in vision ENT ENT ED: Denies rhinorrhea or sore throat Cardiovascular Cardiovascular: Denies chest pain or palpitations Respiratory/Chest Respiratory/Chest: Denies cough or dyspnea Gastrointestinal Gastrointestinal: Reports abdominal pain, melena and nausea; Denies vomiting Genitourinary Genitourinary ED: Reports dysuria; Denies hematuria Musculoskeletal Musculoskeletal: Denies back pain or neck pain Integumentary Denies abscess or rash Neurologic Neurologic: Denies headache(s) or weakness Allergic/Immunologic Allergic/Immunologic ED: Denies mouth swelling or urticaria EXAM Physical Exam Const Vital Signs: 05/17/22 10:31 Temperature 97.7 F L Temperature Source Temporal Pulse Rate 75 Respiratory Rate 16 Blood Pressure 183/112 H Blood Pressure Mean 135 Pulse Ox 100 Oxygen Delivery Method Room Air Positive well nourished and well developed General Appearance ED: well developed HEENT Reports moist mucous membranes Neck supple and no JVD Resp normal respiratory effort and clear to auscultation bilaterally Cardio regular rate, regular rhythm and no murmurs GI normal to inspection, nondistended, normoactive bowel sounds Palpation: soft and tender epigastric, RLQ and RUQ; Negative for guarding or rebound tenderness present Rectal Exam: normal sphincter tone and heme negative stool; Negative for external hemorrhoid(s) or tenderness Extremity normal to inspection General Extremety ED: Negative for edema or tenderness General Extremity: Negative for edema Neuro oriented x3, CN's II-XII intact bilaterally and no sensory deficits noted Sensorium / Orientation: alert Motor Exam: strength 5/5 throughout Psych mental status grossly normal Skin no rashes or lesions noted MDM MDM MDM Narrative Medical decision making narrative: Patient was given IV fluids, morphine, and Zofran. CBC was within normal limits. Comprehensive metabolic profile was within normal limits. Lipase was normal. Urinalysis does not show any evidence of urinary tract infection. Stool was Hemoccult negative. CT scan of the abdomen pelvis was obtained. There is no acute intra-abdominal process noted. This was interpreted by the radiologist and reviewed by myself. Patient is feeling better on reevaluation. Patient was instructed to follow-up with his primary care physician in 5 to 7 days. Patient understood and was agreeable with the plan. All questions were answered. Lab Data Attestation: I reviewed the patient's lab results. Labs: Laboratory Results - last 24 hr 05/17/22 05/17/22 05/17/22 10:55 10:55 11:10 WBC 7.8 RBC 4.79 Hgb 15.6 Hct 45.4 MCV 94.8 H MCH 32.6 H MCHC 34.4 RDW Std Deviation 46.7 H RDW Coeff of Shlomo 13.2 Plt Count 98 L MPV 13.7 H Immature Gran % (Auto) 0.400 Neut % (Auto) 64.6 Lymph % (Auto) 20.2 [place] % (Auto) 7.9 Eos % (Auto) 6.0 H Baso % (Auto) 0.9 Absolute Neuts (auto) 5.1 Absolute Lymphs (auto) 1.58 Nucleated RBC % 0 Sodium 141 Potassium 4.2 Chloride 107 Carbon Dioxide 29.0 Anion Gap 5 BUN 11 Creatinine 0.87 Estim Creat Clear Calc 110.61 Est GFR (MDRD) Af Amer 124 Est GFR (MDRD) Non-Af 103 BUN/Creatinine Ratio 12.7 Glucose 97 Calcium 8.8 Total Bilirubin 0.20 AST 15 ALT 25 Alkaline Phosphatase 77 Total Protein 7.7 Albumin 3.9 Globulin 3.8 Albumin/Globulin Ratio 1.0 Lipase 259 Urine Color Yellow Urine Clarity Sl. Cloudy Urine pH 7.0 Ur Specific [place] 1.010 Urine Protein Negative Urine Glucose (UA) Normal Urine Ketones Negative Urine Occult Blood Negative Urine Nitrite Negative Urine Bilirubin Negative Urine Urobilinogen Normal Ur Leukocyte Esterase Negative Urine RBC 0 SEEN Urine WBC 0 SEEN Ur Squamous Epith Cells 0-5 SEEN Urine Bacteria 0 SEEN Urine Mucus 0 SEEN Radiography Diagnostic Testing: Clinical Impression(s) from Imaging Studies Abdomen/Pelvis CT 05/17/22 10:56 IMPRESSION: Moderate amount of fecal material is seen throughout the colon. Prior cholecystectomy. Electronically Signed: Reza Zhou MD at 13:03 EDT , Discharge Plan Triage Chief Complaint: Abd Pain ED Provider: Arnoldo Millard Dx/Rx/DC Orders Clinical Impression: Abdominal pain, Complaint of melena Instructions: ED Abdominal Pain Unkn Cause Male... Prescriptions: No Action sertraline 100 MG tablet 100 mg PO DAILY Label Comments: depression metoprolol succinate 200 mg Tablet Extended Release 24 Hr 200 mg PO DAILY lisinopril 40 mg Tablet 40 mg PO DAILY ondansetron 4 mg tablet,disintegrating 4 mg PO Q8H PRN (Reason: nausea and vomiting) Qty: 10 0RF Primary Care Provider: Ghassan Coronado Referrals: Ghassan Coronado MD [Primary Care Provider] - 5-7 Days Disposition Disposition: Home, Self Care
--- NOTE | 2022-05-17 10:56 | CT_ITS ---
STUDY: CT ABDOMEN AND PELVIS WITH CONTRAST REASON FOR EXAM: Male, 41 years old. Abdominal pain -- IV PO Contrast. Intermittent rectal bleeding for 2 weeks. Right-sided abdominal pain. History of kidney stones. RADIATION DOSAGE (If Supplied By Facility): CTDIvol = ( 15.65 ) mGy, DLP = ( 1113.78 ) mGycm TECHNIQUE: Transaxial images were obtained from the dome of the diaphragm to the symphysis pubis with oral contrast. Oral and amp; IV Gastrografin and amp; 100mL Isovue-300 was administered. Sagittal and coronal images were reconstructed. Individualized dose optimization techniques were used for this CT. COMPARISON: Comparison is made with prior examination dated 08/10/2021. FINDINGS: The visualized lung bases are unremarkable. The visualized portions of the heart are within normal limits. Normal liver. There are surgical clips in the gallbladder fossa consistent with a prior cholecystectomy. Normal spleen. Normal pancreas. Normal bilateral adrenal glands. Normal right kidney. Normal left kidney. Normal visualized stomach. Normal small intestine. Moderate amount of fecal material is seen in the colon. The patient is status post appendectomy. Normal abdominal aorta. Normal inferior vena cava. Normal retroperitoneum. Mild degree of diffuse bladder wall thickening. There is a small umbilical hernia containing fat. Small bilateral inguinal hernia is containing fat. Normal osseous structures. CT/Abdomen/Pelvis WITH Contrast IMPRESSION: Moderate amount of fecal material is seen throughout the colon. Prior cholecystectomy. Electronically Signed: Reza Zhou MD at 13:03 EDT ,
[2022-05-17] MEDS: 0.9% Normal Saline 1,000 ML 1000 ML IV (11:07)
[2022-05-17] MEDS: Ondansetron 4 MG/2 ML Vial IV (11:07)
[2022-05-17] MEDS: Morphine 4 MG/ML Syringe IV (11:07)
[2022-05-17 11:11] LABS: Absolute Lymphocyte Count 1.58 X10^3/uL (0.83-4.51); Absolute Neutrophil Count 5.1 X10^3/uL (2.0-7.7); Basophil# 0.07 X10^3/uL; Basophil% 0.9 % (0-1); Eosinophil# 0.47 X10^3/uL; Hematocrit 45.4 % (40-54); Hemoglobin 15.6 g/dL (13.0-16.5); Lymphocyte # 1.58 X10^3/ul (0.83-4.51); Lymphocyte % 20.2 % (19-41); Mean Corp Hgb Conc 34.4 g/dL (32-36); Mean Corpuscular Hgb 32.6 pg (27.0-32.0); Mean Corpuscular Volume 94.8 fL (80-94); Mean Platelet Vol. 13.7 fl (6.2-12.0); Monocyte# 0.62 X10^3/uL; Monocyte% 7.9 % (0-10); NRBC Flagged by Analyzer 0 % (0-5); Neutrophil # 5.06 X10^3/uL (2.7-7.7); Neutrophil % 64.6 % (47-70); POSITIVE COUNT YES; Platelet Count 98 K/mm3 (150-450); RBC Distribution Width CV 13.2 % (11.6-14.6); RBC Distribution Width SD 46.7 fl (35.1-43.9); Red Blood Count 4.79 M/mm3 (4.6-6.2); White Blood Count 7.8 K/mm3 (4.4-11.0)
[2022-05-17 11:15] LABS: Bacteria 0 SEEN /hpf (None Seen); Mucous, Urine 0 SEEN /hpf (<or=2+); Red Blood Cells-Urine 0 SEEN /hpf (0-5); White Blood Cells 0 SEEN /hpf (0-5)
[2022-05-17 11:23] LABS: Color, Urine Yellow (Yellow); Glucose, Dipstick Normal (Normal); Ketone-Dipstick Negative (Negative); Leukocyte Esterase-Dipstick Negative /ul (Negative); Nitrite-Dipstick Negative (Negative); Occult Blood-Urine Negative /ul (Negative); Protein-Dipstick Negative (Negative); Urine Bilirubin Dipstick Negative (Negative); Urine Clarity Sl. Cloudy (Clear); Urine Urobilinogen Normal (Normal)
[2022-05-17 11:25] LABS: AST(SGOT) 15 U/L (15-37); Alanine Aminotransfer ALT/SGPT 25 U/L (16-61); Albumin, Serum 3.9 g/dL (3.2-5.0); Alkaline Phosphatase 77 U/L (45-117); Anion Gap 5 (5-15); BUN 11 mg/dL (7-18); BUN/Creat Ratio 12.7 RATIO (10-20); Calcium,Total 8.8 mg/dL (8.5-10.1); Chloride 107 mmol/L (98-107); Creatinine, Serum 0.87 mg/dL (0.70-1.30); EST Glomerular Filtration Rate 103 mL/min (>60); Est Glom Filt Rate - Afr Amer 124 mL/min (>60); Estimated Creatinine Clearance 110.61 ml/min; Globulin 3.8 g/dL (2.2-4.2); Glucose 97 mg/dL (74-106); Lipase 259 U/L (73-393); Potassium 4.2 mmol/L (3.5-5.1); Protein, Total 7.7 g/dL (6.4-8.2); Sodium Level 141 mmol/L (136-145)
[2022-05-17 11:29] LABS: Squamous Epithelial Cells - UA 0-5 SEEN /hpf (0-5)
--- NOTE | 2022-05-17 13:15 | ED.RN ---
Dr. Millard aware patient requests pain medication, will wait for CT results
== END 2022-05-17 13:54 | disposition home or self-care (01) ==
PROVIDERS: Emergency Provider Emergency Medicine; PCP Family Medicine; Visit Provider Emergency Medicine
DX: R10.9 Unspecified abdominal pain (principal); F17.210 Nicotine dependence, cigarettes, uncomplicated; Z80.0 Family history of malignant neoplasm of digestive organs; R11.0 Nausea; Z87.442 Personal history of urinary calculi
CPT/HCPCS: 74177; 80053; 81001; 82274; 83690; 85025; 96361; 96374; 96375; 99283; J7030; Q9967; A4216; J2405

== ENCOUNTER 2023-04-18 18:40 | Emergency (ER) | payer MEDICARE, MEDICAID, SELFPAY ==
[2023-04-18 18:41] VITALS: BP 187/121; PULSE 102; RESP 20; TEMP 35.9; O2SAT 100; BMI 29.0
--- NOTE | 2023-04-18 19:01 | CT_ITS ---
INDICATION: Right flank pain, nausea EXAMINATION: CT ABDOMEN AND PELVIS WITHOUT CONTRAST - CT Abdomen And Pelvis W/O Contrast Injection TECHNIQUE: Helically acquired images were obtained of the abdomen and pelvis without oral or IV contrast. A radiation dose optimization technique was used for this scan. IV Contrast dosage and agent: None. Oral contrast: None. COMPARISON: 05/17/2022 FINDINGS: LOWER CHEST: Lung bases are clear. No cardiomegaly or pericardial effusion. LIVER: Homogeneous. No focal mass. GALLBLADDER AND BILIARY TREE: Cholecystectomy. No intra- or extrahepatic biliary ductal dilation. PANCREAS: No focal cystic or solid mass. SPLEEN: Normal size without focal cystic or solid mass. ADRENAL GLANDS: No nodules. KIDNEYS AND URETERS: No nephrolithiasis or hydronephrosis. PERITONEUM: No ascites or free air. BOWEL: Prior appendectomy changes. No stomach or bowel distension. No focal inflammatory change. LYMPH NODES: No enlarged mesenteric or retroperitoneal lymph nodes. VESSELS: Aorta is non-dilated. URINARY BLADDER: Unremarkable. REPRODUCTIVE ORGANS: No pelvic masses. ABDOMINAL WALL: Small fat-containing umbilical hernia. BONES: No acute or aggressive abnormality. CT/Abdomen/Pelvis without Cont IMPRESSION: No acute findings in the abdomen or pelvis. No nephrolithiasis or evidence of obstructive uropathy. Electronically Signed: Jayden Jones MD at 20:02 EDT ,
--- NOTE | 2023-04-18 19:05 | EX.ED.DYSGE1 ---
HPI History of Present Illness Chief Complaint: Flank Pain Informant: patient Narrative Narrative: Worsening right side abdominal pain rating to his groin for last 2 days. Nausea without vomiting. States mild dysuria. History of kidney stone in 1997 requiring lithotripsy. History of cholecystectomy and appendectomy. Allergies to morphine fentanyl and tramadol however has taken Dilaudid in the past. Allergy to Toradol. Denies fevers. Prior similar symptoms: Yes PFSH PFSH Medical History Appendicitis Diarrhea DJD (degenerative joint disease) Kidney stone Kidney stones Lung nodule Home Medications sertraline 100 mg tablet 100 mg PO DAILY 12/22/16 [History Last Taken Unknown] lisinopril 40 mg tablet 40 mg PO DAILY 05/03/21 [History Last Taken Unknown] metoprolol succinate 200 mg tablet,extended release 24 hr 200 mg PO DAILY 05/03/21 [History Last Taken Unknown] ondansetron 4 mg disintegrating tablet 4 mg PO Q8H PRN nausea and vomiting #10 tabs 05/03/21 [Rx Last Taken Unknown] cefdinir 300 mg capsule 300 mg PO BID #14 caps 04/18/23 [Rx Last Taken Unknown] oxycodone-acetaminophen 5 mg-325 mg tablet (Percocet) 1 tab PO Q6H pain 3 days #12 tabs 04/18/23 [Rx Last Taken Unknown] Allergy/AdvReac Type Severity Reaction Status Date / Time morphine AdvReac Intermediate Rash Verified 04/18/23 18:41 fentanyl AdvReac Other Verified 05/17/22 10:30 ketorolac [From Toradol] AdvReac HEADACHES Verified 05/17/22 10:30 tramadol [From Ultram] AdvReac HEADACHES Verified 05/17/22 10:30 Family History Grandmother Colon cancer Father Diabetes Kidney disease Hypertension Surgical History History of appendectomy History of cholecystectomy Social History Smoking Status: Current every day smoker tobacco type: cigarettes Tobacco: How many years used: 21 second hand exposure: Yes alcohol intake: never substance use type: does not use ROS ROS ED Constitutional Constitutional ED: Denies chills, fever(s) or sweats Eyes Eyes: Denies change in vision ENT ENT ED: Denies dysphagia or sore throat Cardiovascular Cardiovascular: Denies chest pain, leg edema, palpitations or racing heartbeat Respiratory/Chest Respiratory/Chest: Denies cough, dyspnea or dyspnea on exertion Gastrointestinal Gastrointestinal: Reports nausea; Denies abdominal pain, diarrhea or vomiting Genitourinary Genitourinary ED: Denies dysuria, hematuria or urinary frequency Musculoskeletal Musculoskeletal: Reports back pain; Denies extremity pain or neck pain Integumentary Denies rash or wounds Neurologic Neurologic: Denies headache(s), paresthesias or weakness EXAM Physical Exam Const Vital Signs: 04/18/23 18:41 04/18/23 20:41 04/18/23 21:10 Temperature 96.6 F L Temperature Source Temporal Pulse Rate 102 H 86 89 Respiratory Rate 20 H 16 17 Blood Pressure 187/121 H 160/80 H 145/72 H Blood Pressure Mean 143 106 Pulse Ox 100 98 99 Oxygen Delivery Method Room Air Positive well nourished and well developed General Appearance ED: well developed and NAD HEENT Reports moist mucous membranes normocephalic and atraumatic Eyes PERRL, EOMs intact bilaterally and conjunctivae normal General Eye ED: Yes normal appearance of both eyes Neck no lymphadenopathy and supple General: Negative for tenderness Chest Wall Chest: Negative for tenderness Resp normal respiratory effort and normal air movement Effort and Inspection: symmetric chest movement; Negative for respiratory distress Cardio regular rate, regular rhythm and no murmurs Peripheral Pulses: pulses 2+ throughout GI normal to inspection, nondistended, normoactive bowel sounds and non-tender Palpation: Negative for guarding or rebound tenderness present Back/Spine no CVA tenderness and no thoracic nor lumbar tenderness Back/Spine Narrative: No rash in the flank region. Extremity normal to inspection General Extremety ED: Negative for edema or tenderness General Extremity: Negative for edema Neuro oriented x3 and no sensory deficits noted Sensorium / Orientation: awake and alert Skin no rashes or lesions noted and no wounds MDM MDM MDM Narrative Medical decision making narrative: Interventions / MDM: Differential diagnosis: Acute UTI, musculoskeletal flank pain Diagnosis considered but do not suspect: Kidney stone however CT negative. No clinical shingles My EKG interpretation: N/A Imaging independently reviewed and interpreted by myself: CT abdomen pelvis: No acute process. Also read by radiology. External documents reviewed: N/A Test considered but not ordered:N/A ED course: Patient had progressive right flank pain and nausea for 2 days. History of kidney stones. Renal stone protocol initiated. Multiple allergies. Is given Zofran Dilaudid, CT scan ordered. Laboratory studies normal CT scan results were negative. Persistent pain additional pain dose was given. Urine 5 leukocytes, 10 occult blood. He is symptomatic with this area. Urine culture sent. Covered with Rocephin. Additional for pain control and complicated UTI antibiotics written for meds to bed for the patient. Outpatient follow-up. All questions were answered. Re-evaluation: stable Disposition discussed with patient/family/significant other: Patient Case discussed with consulting clinician: N/A This note was generated with [employer] dictation software. It may contain incorrect words, spelling, and punctuation that were not noted in checking the note before signing. Lab Data Attestation: I reviewed the patient's lab results. Labs: Laboratory Results - last 24 hr 04/18/23 04/18/23 19:27 20:10 WBC 5.4 RBC 4.67 Hgb 14.5 Hct 44.0 MCV 94.2 H MCH 31.0 MCHC 33.0 RDW Std Deviation 48.0 H RDW Coeff of Shlomo 13.9 Plt Count 75 L MPV 13.4 H Immature Gran % (Auto) 0.600 Neut % (Auto) 71.9 H Lymph % (Auto) 17.3 L [place] % (Auto) 7.2 Eos % (Auto) 2.4 Baso % (Auto) 0.6 Absolute Neuts (auto) 3.9 Absolute Lymphs (auto) 0.93 Nucleated RBC % 0 Differential Comment SCANNED Sodium 140 Potassium 3.4 L Chloride 108 H Carbon Dioxide 26.0 Anion Gap 6 BUN 9 Creatinine 0.81 Estim Creat Clear Calc 117.59 Est GFR (MDRD) Af Amer 134 Est GFR (MDRD) Non-Af 111 BUN/Creatinine Ratio 11.1 Glucose 114 H Calcium 8.7 Urine Color Yellow Urine Clarity Clear Urine pH 6.0 Ur Specific [place] 1.015 Urine Protein 30 H Urine Glucose (UA) Normal Urine Ketones Negative Urine Occult Blood 10 H Urine Nitrite Negative Urine Bilirubin Negative Urine Urobilinogen Normal Ur Leukocyte Esterase 25 H Urine RBC 0 SEEN Urine WBC 0-5 SEEN Ur Squamous Epith Cells 0 SEEN Urine Bacteria 0 SEEN Hyaline Casts 0-5 SEEN Urine Mucus 0 SEEN Radiography Diagnostic Testing: Clinical Impression(s) from Imaging Studies Abdomen/Pelvis CT 04/18/23 19:01 IMPRESSION: No acute findings in the abdomen or pelvis. No nephrolithiasis or evidence of obstructive uropathy. Electronically Signed: Jayden Jones MD at 20:02 EDT Reading Location ID and State: [address] [place] [address] Tel , Service support , Discharge Plan Triage Chief Complaint: Flank Pain ED Provider: Alfredo Mclaughlin Dx/Rx/DC Orders Clinical Impression: Acute right flank pain, UTI symptoms Instructions: Urinary Tract Infections in Men, ED Flank Pain, Uncertain Cause Prescriptions: New oxycodone-acetaminophen [Percocet] 5-325 mg tablet 1 tab PO Q6H 3 Days Qty: 12 0RF cefdinir 300 mg capsule 300 mg PO BID Qty: 14 0RF No Action sertraline 100 MG tablet 100 mg PO DAILY Patient Comments: depression metoprolol succinate 200 mg Tablet Extended Release 24 Hr 200 mg PO DAILY lisinopril 40 mg Tablet 40 mg PO DAILY ondansetron 4 mg tablet,disintegrating 4 mg PO Q8H PRN (Reason: nausea and vomiting) Qty: 10 0RF Primary Care Provider: Ghassan Coronado Referrals: Ghassan Coronado MD [Primary Care Provider] - 3-5 Days if not improving Activity Restrictions/Additional Instructions: CT scan negative for acute process or kidney stones. Urine possible infection. Culture pending. Take antibiotic as prescribed since you are symptomatic. Pain medicine as needed. Follow-up with your doctor. Disposition Disposition: Home, Self Care Discharge Date/Time: 04/18/23 22:19
[2023-04-18] MEDS: HYDROmorphone 0.5 MG/0.5 ML SYRINGE IV ×2 (19:22→21:04)
[2023-04-18] MEDS: Ondansetron 4 MG/2 ML Vial IV (19:22)
[2023-04-18] MEDS: 0.9% Normal Saline (1000mL) 1,000 ML 250 ML IV (19:22)
[2023-04-18 19:45] LABS: Absolute Lymphocyte Count 0.93 X10^3/uL (0.83-4.51); Absolute Neutrophil Count 3.9 X10^3/uL (2.0-7.7); Basophil# 0.03 X10^3/uL; Basophil% 0.6 % (0-1); Eosinophil# 0.13 X10^3/uL; Eosinophils% 2.4 % (0-5); Hemoglobin 14.5 g/dL (13.0-16.5); Lymphocyte # 0.93 X10^3/ul (0.83-4.51); Lymphocyte % 17.3 % (19-41); Mean Corpuscular Volume 94.2 fL (80-94); Mean Platelet Vol. 13.4 fl (6.2-12.0); Monocyte# 0.39 X10^3/uL; Monocyte% 7.2 % (0-10); NRBC Flagged by Analyzer 0 % (0-5); Neutrophil # 3.88 X10^3/uL (2.7-7.7); Neutrophil % 71.9 % (47-70); POSITIVE COUNT YES; Platelet Count 75 K/mm3 (150-450); RBC Distribution Width CV 13.9 % (11.6-14.6); Red Blood Count 4.67 M/mm3 (4.6-6.2); White Blood Count 5.4 K/mm3 (4.4-11.0)
[2023-04-18 19:47] LABS: Differential Indicated SCAN CRITERIA MET
[2023-04-18 19:56] LABS: Anion Gap 6 (5-15); BUN 9 mg/dL (7-18); BUN/Creat Ratio 11.1 RATIO (10-20); Calcium,Total 8.7 mg/dL (8.5-10.1); Chloride 108 mmol/L (98-107); Creatinine, Serum 0.81 mg/dL (0.70-1.30); EST Glomerular Filtration Rate 111 mL/min (>60); Est Glom Filt Rate - Afr Amer 134 mL/min (>60); Estimated Creatinine Clearance 117.59 ml/min; Glucose 114 mg/dL (74-106); Potassium 3.4 mmol/L (3.5-5.1); Sodium Level 140 mmol/L (136-145)
[2023-04-18 20:28] LABS: Bacteria 0 SEEN /hpf (None Seen); Color, Urine Yellow (Yellow); Glucose, Dipstick Normal (Normal); Ketone-Dipstick Negative (Negative); Leukocyte Esterase-Dipstick 25 /ul (Negative); Mucous, Urine 0 SEEN /hpf (<or=2+); Nitrite-Dipstick Negative (Negative); Occult Blood-Urine 10 /ul (Negative); Protein-Dipstick 30 mg/dl (Negative); Red Blood Cells-Urine 0 SEEN /hpf (0-5); Specific Gravity, Urine 1.015 (1.002-1.030); Squamous Epithelial Cells - UA 0 SEEN /hpf (0-5); Urine Bilirubin Dipstick Negative (Negative); Urine Clarity Clear (Clear); Urine Urobilinogen Normal (Normal)
[2023-04-18 20:34] LABS: Differential Comment SCANNED
[2023-04-18 20:41] VITALS: BP 160/80; PULSE 86; RESP 16; O2SAT 98
[2023-04-18 20:45] LABS: Hyaline Cast 0-5 SEEN /lpf (0-5); White Blood Cells 0-5 SEEN /hpf (0-5)
[2023-04-18] MEDS: Ceftriaxone 1 GM/50 ML BAG IV (21:04)
[2023-04-18 21:10] VITALS: BP 145/72; PULSE 89; RESP 17; O2SAT 99
== END 2023-04-18 22:19 | disposition home or self-care (01) ==
PROVIDERS: Emergency Provider Emergency Medicine; PCP Family Medicine; Visit Provider Emergency Medicine
DX: N39.0 Urinary tract infection, site not specified (principal); F17.210 Nicotine dependence, cigarettes, uncomplicated; R10.9 Unspecified abdominal pain; Z90.49 Acquired absence of other specified parts of digestive tract; R11.0 Nausea
CPT/HCPCS: 74176; 80048; 81001; 85025; 87086; 96365; 96375; 96376; 99283; J7030; A4216; J2405

== ENCOUNTER 2023-05-09 17:21 | Emergency (ER) | payer MEDICARE, MEDICAID, SELFPAY ==
[2023-05-09 17:23] VITALS: BP 171/116; PULSE 102; RESP 18; TEMP 36.3; O2SAT 100; BMI 29.0
--- NOTE | 2023-05-09 18:20 | ED.RN ---
PT STATES HE IS IN A LOT OF PAIN AND WOULD LIKE SOMETHING FOR IT. PT INFORMED WE HAVE TO WAIT FOR DOCTOR TO SEE HIM.
--- NOTE | 2023-05-09 20:18 | ED.RN ---
pt approached triage desk and reported in addition to his flank pain he was having some chest pain 01/22. called RT for an EKG.
[2023-05-09 20:48] LABS: Bacteria 0 SEEN /hpf (None Seen); Mucous, Urine 0 SEEN /hpf (<or=2+); Red Blood Cells-Urine 0 SEEN /hpf (0-5); White Blood Cells 0 SEEN /hpf (0-5)
[2023-05-09 20:53] LABS: Color, Urine Yellow (Yellow); Glucose, Dipstick Normal (Normal); Ketone-Dipstick Negative (Negative); Leukocyte Esterase-Dipstick 25 /ul (Negative); Nitrite-Dipstick Negative (Negative); Occult Blood-Urine Negative /ul (Negative); Protein-Dipstick 30 mg/dl (Negative); Specific Gravity, Urine 1.015 (1.002-1.030); Urine Bilirubin Dipstick Negative (Negative); Urine Clarity Clear (Clear); Urine Urobilinogen 1 mg/dl (Normal); Urine pH 6.5 (5.0 - 8.0)
[2023-05-09 21:18] LABS: Squamous Epithelial Cells - UA 0-5 SEEN /hpf (0-5)
[2023-05-09 21:29] LABS: Absolute Lymphocyte Count 1.68 X10^3/uL (0.83-4.51); Absolute Neutrophil Count 5.1 X10^3/uL (2.0-7.7); Basophil# 0.06 X10^3/uL; Basophil% 0.8 % (0-1); Eosinophil# 0.16 X10^3/uL; Eosinophils% 2.1 % (0-5); Hematocrit 40.1 % (40-54); Hemoglobin 13.4 g/dL (13.0-16.5); Lymphocyte # 1.68 X10^3/ul (0.83-4.51); Lymphocyte % 21.8 % (19-41); Mean Corp Hgb Conc 33.4 g/dL (32-36); Mean Corpuscular Hgb 30.3 pg (27.0-32.0); Mean Corpuscular Volume 90.7 fL (80-94); Mean Platelet Vol. 12.5 fl (6.2-12.0); Monocyte% 7.8 % (0-10); NRBC Flagged by Analyzer 0 % (0-5); Neutrophil # 5.11 X10^3/uL (2.7-7.7); Neutrophil % 66.2 % (47-70); Platelet Count 144 K/mm3 (150-450); RBC Distribution Width CV 13.4 % (11.6-14.6); RBC Distribution Width SD 45.1 fl (35.1-43.9); Red Blood Count 4.42 M/mm3 (4.6-6.2); White Blood Count 7.7 K/mm3 (4.4-11.0)
[2023-05-09] MEDS: Dicyclomine 10 MG Capsule 20 MG PO (21:52)
[2023-05-09] MEDS: Ondansetron 4 MG/2 ML Vial IV (21:53)
[2023-05-09 21:55] LABS: Anion Gap 4 (5-15); BUN 9 mg/dL (7-18); Calcium,Total 8.6 mg/dL (8.5-10.1); Chloride 109 mmol/L (98-107); Creatinine, Serum 0.75 mg/dL (0.70-1.30); EST Glomerular Filtration Rate 120 mL/min (>60); Est Glom Filt Rate - Afr Amer 145 mL/min (>60); Glucose 102 mg/dL (74-106); Potassium 3.4 mmol/L (3.5-5.1); Sodium Level 142 mmol/L (136-145)
--- NOTE | 2023-05-09 22:45 | EX.ED.DYSGE1 ---
HPI History of Present Illness Chief Complaint: Flank Pain Detail of Chief Complaint: Sided abdominal pain not flank pain and right-sided chest pain. Informant: patient Onset/Context/Timing Onset: Days (2 days ago) Context: Gradual Onset Timing: Continuous and Waxes and wanes Quality: Achy Location: Right upper and right lower quadrant Current Severity: Mild Maximum Severity: Moderate Worsened by: Nothing Relieved by: Nothing Associated Symptoms Associated Symptoms: Nausea and diarrhea Narrative Narrative: Patient is a 42-year-old male who presents with right-sided abdominal pain as well as right-sided chest pain that started several days ago. He denies fever, chills night sweats. He denies shortness of breath, cough, dyspnea on exertion, orthopnea or PND. The chest discomfort is described as pain. Nothing makes it better or worse. He denies intolerance to greasy or fried foods. He denies history of renal or ureterolithiasis. He denies dysuria, frequency, urgency or hematuria. He does endorse nausea without vomiting. He states he has had 2-3 loose watery stools per day. He has not been on an antibiotic recently. He has not noted blood or mucus in his stool. He denies fever but did report chills. He has not noted a rash. He denies headache, visual, ocular auditory symptoms. He denies neck pain or neck stiffness. There is no history of trauma. Prior similar symptoms: No Recent Illness/Hospitalization: No [facility] Medical History Appendicitis Diarrhea DJD (degenerative joint disease) Kidney stone Kidney stones Lung nodule Home Medications sertraline 100 mg tablet 100 mg PO DAILY 12/22/16 [History Last Taken Unknown] lisinopril 40 mg tablet 40 mg PO DAILY 05/03/21 [History Last Taken Unknown] metoprolol succinate 200 mg tablet,extended release 24 hr 200 mg PO DAILY 05/03/21 [History Last Taken Unknown] ondansetron 4 mg disintegrating tablet 4 mg PO Q8H PRN nausea and vomiting #10 tabs 05/03/21 [Rx Last Taken Unknown] cefdinir 300 mg capsule 300 mg PO BID #14 caps 04/18/23 [Rx Last Taken Unknown] oxycodone-acetaminophen 5 mg-325 mg tablet (Percocet) 1 tab PO Q6H pain 3 days #12 tabs 04/18/23 [Rx Last Taken Unknown] dicyclomine 10 mg capsule 20 mg (2 x 10 mg) PO TIDAC #20 CAPSULES 05/09/23 [Rx Last Taken Unknown] ondansetron 4 mg disintegrating tablet 4 mg PO Q8H PRN PRN Nausea #10 tabs 05/09/23 [Rx Last Taken Unknown] Allergy/AdvReac Type Severity Reaction Status Date / Time morphine AdvReac Intermediate Rash Verified 04/18/23 18:41 fentanyl AdvReac Other Verified 05/17/22 10:30 ketorolac [From Toradol] AdvReac HEADACHES Verified 05/17/22 10:30 tramadol [From Ultram] AdvReac HEADACHES Verified 05/17/22 10:30 Family History Grandmother Colon cancer Father Diabetes Kidney disease Hypertension Surgical History History of appendectomy History of cholecystectomy Social History Smoking Status: Current every day smoker tobacco type: cigarettes Tobacco: How many years used: 21 second hand exposure: Yes alcohol intake: never substance use type: does not use ROS ROS ED Constitutional Constitutional ED: Reports chills; Denies fever(s) or subjective Eyes Eyes: Denies blurry vision, change in vision or diplopia ENT ENT ED: Denies ear pain, rhinorrhea or sore throat Cardiovascular Cardiovascular: Reports chest pain; Denies orthopnea, palpitations, paroxysmal nocturnal dyspnea or racing heartbeat Respiratory/Chest Respiratory/Chest: Denies cough, dyspnea, dyspnea on exertion, orthopnea or paroxysmal nocturnal dyspnea Gastrointestinal Gastrointestinal: Reports abdominal pain, diarrhea and nausea; Denies constipation, melena or vomiting Genitourinary Genitourinary ED: Denies dysuria, hematuria or urinary frequency Musculoskeletal Musculoskeletal: Denies arthralgias, back pain or myalgias Integumentary Denies rash Neurologic Neurologic: Denies headache(s) or paresthesias Psychiatric Psychiatric: Denies anxiety Hematologic/Lymphatic Hematologic/Lymphatic: Reports systems reviewed and no addt'l complaints, except as documented EXAM Physical Exam Const Vital Signs: 05/09/23 17:23 05/09/23 22:47 Temperature 97.3 F L Temperature Source Temporal Pulse Rate 102 H 75 Respiratory Rate 18 13 Blood Pressure 171/116 H 164/92 H Blood Pressure Mean 134 116 Pulse Ox 100 96 Oxygen Delivery Method Room Air Room Air Positive well nourished, well developed and unkempt General Appearance ED: unkempt, well developed, NAD and pallor; Negative for cyanotic or diaphoretic HEENT Reports dry mucous membranes HEENT Narrative: Head is atraumatic and normocephalic. Mouth ED: Yes dry mucous membranes Mouth: dry mucous membranes Eyes PERRL General Eye ED: Negative for pale conjunctiva or scleral icterus Neck no lymphadenopathy, supple and no JVD Chest Wall inspection of chest normal and palpation of chest normal Resp normal respiratory effort and clear to auscultation bilaterally Cardio regular rate, regular rhythm, S1 normal heart sound, S2 normal heart sound and no murmurs GI normal to inspection, nondistended, normoactive bowel sounds, non-tender, non-distended and no masses; Negative for hepatosplenomegaly Palpation: soft Back/Spine no CVA tenderness Extremity normal to inspection Neuro oriented x3, CN's II-XII intact bilaterally and no sensory deficits noted Sensorium / Orientation: alert Motor Exam: strength 5/5 throughout Psych Psych Narrative: Patient is cognitively slow. He is depressed. Appearance: unkempt Skin no rashes or lesions noted, no wounds and skin turgor normal General Skin Exam: pallor; Negative for elasticity normal or jaundice MDM MDM MDM Narrative Medical decision making narrative: EKG was obtained per nurse protocol since he complained of chest pain. Suspect this is a viral gastroenteritis. Patient it is not a good informant. Prior records reviewed. Prior labs were reviewed. Patient was given 1 L normal saline. Treated with Zofran for his nausea and Bentyl for his abdominal discomfort. In my opinion his chest pain is not cardiac. History & Record Review Additional record(s) reviewed:: Prior ED visit and Prior labs Lab Data Attestation: I reviewed the patient's lab results. Lab results narrative: CBC is on markable. BMP is remarkable for mild hypokalemia. He did receive p.o. potassium. UA reveals no abnormality other than leukoesterase on macro. Labs: Laboratory Results - last 24 hr 05/09/23 05/09/23 20:41 21:10 WBC 7.7 RBC 4.42 L Hgb 13.4 Hct 40.1 MCV 90.7 MCH 30.3 MCHC 33.4 RDW Std Deviation 45.1 H RDW Coeff of Shlomo 13.4 Plt Count 144 L MPV 12.5 H Immature Gran % (Auto) 1.300 H Neut % (Auto) 66.2 Lymph % (Auto) 21.8 [place] % (Auto) 7.8 Eos % (Auto) 2.1 Baso % (Auto) 0.8 Absolute Neuts (auto) 5.1 Absolute Lymphs (auto) 1.68 Nucleated RBC % 0 Sodium 142 Potassium 3.4 L Chloride 109 H Carbon Dioxide 29.0 Anion Gap 4 L BUN 9 Creatinine 0.75 Estim Creat Clear Calc 127.00 Est GFR (MDRD) Af Amer 145 Est GFR (MDRD) Non-Af 120 BUN/Creatinine Ratio 12.0 Glucose 102 Calcium 8.6 Urine Color Yellow Urine Clarity Clear Urine pH 6.5 Ur Specific [place] 1.015 Urine Protein 30 H Urine Glucose (UA) Normal Urine Ketones Negative Urine Occult Blood Negative Urine Nitrite Negative Urine Bilirubin Negative Urine Urobilinogen 1 H Ur Leukocyte Esterase 25 H Urine RBC 0 SEEN Urine WBC 0 SEEN Ur Squamous Epith Cells 0-5 SEEN Urine Bacteria 0 SEEN Urine Mucus 0 SEEN Treatment and Re-Evaluation :: Reassessed at 2247. Patient reported improvement. He states the pain is not gone. Plan is to discharge prescription for Zofran and Bentyl. Discharge Plan Triage Chief Complaint: Flank Pain ED Provider: Demetris Griffiths Dx/Rx/DC Orders Clinical Impression: Right sided abdominal pain, Diarrhea, Nausea alone Instructions: ED Vomiting and Diarrhea ... Prescriptions: New ondansetron [ondansetron] 4 mg tablet,disintegrating 4 mg PO Q8H PRN PRN (Reason: Nausea) Qty: 10 0RF dicyclomine 10 mg capsule 20 mg PO TIDAC Qty: 20 0RF No Action sertraline 100 MG tablet 100 mg PO DAILY Patient Comments: depression metoprolol succinate 200 mg Tablet Extended Release 24 Hr 200 mg PO DAILY lisinopril 40 mg Tablet 40 mg PO DAILY ondansetron 4 mg tablet,disintegrating 4 mg PO Q8H PRN (Reason: nausea and vomiting) Qty: 10 0RF oxycodone-acetaminophen [Percocet] 5-325 mg tablet 1 tab PO Q6H 3 Days Qty: 12 0RF cefdinir 300 mg capsule 300 mg PO BID Qty: 14 0RF Primary Care Provider: Ghassan Coronado Referrals: Ghassan Coronado MD [Primary Care Provider] - 3-5 Days if not improving Disposition Disposition: Home, Self Care
[2023-05-09 22:47] VITALS: BP 164/92; PULSE 75; RESP 13; O2SAT 96
[2023-05-09 23:11] VITALS: BP 169/119; PULSE 77; RESP 18
[2023-05-09] MEDS: Potassium Chloride Oral Soln 20 MEQ/15 ML UDC 40 MEQ PO (23:11)
== END 2023-05-09 23:26 | disposition home or self-care (01) ==
PROVIDERS: Emergency Provider Emergency Medicine; PCP Family Medicine; Visit Provider Emergency Medicine
DX: R10.9 Unspecified abdominal pain (principal); R11.0 Nausea; F17.210 Nicotine dependence, cigarettes, uncomplicated; R07.9 Chest pain, unspecified; R19.7 Diarrhea, unspecified; Z87.442 Personal history of urinary calculi
CPT/HCPCS: 80048; 81001; 85025; 93005; 96374; 99283; A4216; J2405

== ENCOUNTER 2023-06-14 17:41 | Emergency (ER) | payer MEDICARE, MEDICAID, SELFPAY ==
[2023-06-14 17:42] VITALS: BP 180/126; PULSE 104; RESP 18; TEMP 37.3; O2SAT 100; BMI 28.0
--- NOTE | 2023-06-14 19:24 | CT_ITS ---
STUDY: CT ABDOMEN AND PELVIS WITHOUT CONTRAST REASON FOR EXAM: Male, 42 years old. Kidney Stone RADIATION DOSAGE (If Supplied By Facility): CTDIvol = ( 13.17 ) mGy, DLP = ( 684.57 ) mGycm TECHNIQUE: Transaxial images were obtained from the dome of the diaphragm to the symphysis pubis without oral contrast, and without intravenous contrast. Sagittal and coronal images were reconstructed. Individualized dose optimization techniques were used for this CT. COMPARISON: April 18, 2023 FINDINGS: The visualized lung bases are unremarkable. The visualized portions of the heart are within normal limits. Normal liver. There are surgical clips in the gallbladder fossa consistent with a prior cholecystectomy. There is moderate splenomegaly. Normal pancreas. Normal bilateral adrenal glands. Normal right kidney. There is stable 0.4 cm probable hyperdense cyst of the left kidney. Normal visualized stomach. Normal small intestine. Normal colon. There are surgical clips in the region of the appendix consistent with a prior appendectomy. There is atherosclerotic calcification of the abdominal aorta, without a demonstrated aneurysm. Normal inferior vena cava. Normal retroperitoneum. Normal urinary bladder. There is mild free fluid in the pelvis. Normal abdominal wall. There is mild degenerative change of the spine. CT/Abdomen/Pelvis without Cont IMPRESSION: No stones or hydronephrosis. No mass or obstruction. Splenomegaly. Electronically Signed: Rl Patrick MD at 21:52 EST ,
--- NOTE | 2023-06-14 19:25 | EDS_ITS ---
HPI HPI - GI History of Present Illness Chief Complaint: Flank Pain Narrative Narrative: 42-year-old male past medical history of hypertension, states he has had kidney stones in the past, but the last one being in the , presents with left flank pain and hematuria with dysuria that he has had for the last 2 days. Was more of a sudden onset. He thinks he had blood in his urine last evening. He denies any exacerbating or alleviating factors. No fevers or chills but he is nauseated. Is not vomiting. He complains of left flank pain similar to when he had his previous kidney stone years ago. [facility] Medical History Appendicitis Diarrhea DJD (degenerative joint disease) Kidney stone Kidney stones Lung nodule Home Medications sertraline 100 mg tablet 100 mg PO DAILY 12/22/16 [History Last Taken Unknown] lisinopril 40 mg tablet 40 mg PO DAILY 05/03/21 [History Last Taken Unknown] metoprolol succinate 200 mg tablet,extended release 24 hr 200 mg PO DAILY 05/03/21 [History Last Taken Unknown] ondansetron 4 mg disintegrating tablet 4 mg PO Q8H PRN nausea and vomiting #10 tabs 05/03/21 [Rx Last Taken Unknown] cefdinir 300 mg capsule 300 mg PO BID #14 caps 04/18/23 [Rx Last Taken Unknown] oxycodone-acetaminophen 5 mg-325 mg tablet (Percocet) 1 tab PO Q6H pain 3 days #12 tabs 04/18/23 [Rx Last Taken Unknown] dicyclomine 10 mg capsule 20 mg (2 x 10 mg) PO TIDAC #20 CAPSULES 05/09/23 [Rx Last Taken Unknown] ondansetron 4 mg disintegrating tablet 4 mg PO Q8H PRN PRN Nausea #10 tabs 05/09/23 [Rx Last Taken Unknown] Allergy/AdvReac Type Severity Reaction Status Date / Time morphine AdvReac Intermediate Rash Verified 06/14/23 17:41 fentanyl AdvReac Other Verified 06/14/23 17:41 ketorolac [From Toradol] AdvReac HEADACHES Verified 06/14/23 17:41 tramadol [From Ultram] AdvReac HEADACHES Verified 06/14/23 17:41 Family History Grandmother Colon cancer Father Diabetes Kidney disease Hypertension Surgical History History of appendectomy History of cholecystectomy Social History Smoking Status: Former smoker Tobacco: How many years used: 21 second hand exposure: Yes alcohol intake: never substance use type: does not use ROS ROS ED ROS Narrative Constitutional: No fever, no chills. HEENT: No sore throat. No neck pain. No loss of vision. No rhinorrhea. Cardiovascular: No chest pain. No palpitations. No pedal edema. Respiratory: No cough, no shortness of breath. Abdominal: No abdominal pain. Positive nausea. No vomiting. Genitourinary: Positive dysuria and pain with urination. Hematuria yesterday evening. Positive left flank pain. Musculoskeletal: No myalgias. No arthralgias. Neurologic: No headaches. No dizziness. No lightheadedness. Skin: No rash. No change in color. Psychiatric: No depression. No anxiety. EXAM Physical Exam Narrative Exam Narrative: Afebrile. Vital signs noted. Nontoxic-appearing. HEENT: Normocephalic. Atraumatic. PERRL, EOMI. Neck soft and supple. No point tenderness or step off. Cardiovascular: Regular rate and rhythm. No murmurs, rubs, or gallops appreciated. Respiratory: No tachypnea. Lungs clear to auscultation bilaterally. Gastrointestinal: Abdomen soft, nontender, with normoactive bowel sounds. No rebound or guarding. No CVA tenderness to percussion bilaterally. Neurological: Awake. Alert. Nonfocal, nonlateralizing. Skin: No rash. Normal color. No pallor. Musculoskeletal: No pedal edema. Full range of motion extremities. Const Vital Signs: 06/14/23 17:42 06/14/23 19:41 06/14/23 19:41 Temperature 99.1 F 97.3 F L Temperature Source Temporal Oral Pulse Rate 104 H 96 96 Respiratory Rate 18 16 16 Blood Pressure 180/126 H 185/121 H 185/121 H Blood Pressure Mean 144 142 142 Pulse Ox 100 95 96 Oxygen Delivery Method Room Air Room Air Room Air 11/30/23 21:00 Temperature Temperature Source Pulse Rate 93 Respiratory Rate 16 Blood Pressure 171/108 H Blood Pressure Mean 129 Pulse Ox 95 Oxygen Delivery Method Room Air MDM MDM MDM Narrative Medical decision making narrative: In the differential diagnosis is ureterolithiasis versus urinary tract infection/pyelonephritis versus musculoskeletal back pain. Patient states that he has multiple allergies to opiates and to Toradol. He states he usually receives Zofran and Dilaudid. He will be given Dilaudid 0.5 mg and Zofran 4 mg and IV fluids at 250 mL/h. Kidney stone work-up was pursued in the form of CBC, BMP, UA, and CT without contrast. I reviewed his prior ED visits, and he has been here for diarrhea in the past. RN had ordered EKG from triage because she reports that the patient told her she was having chest pain, but he made no mention of this on my examination, he was concerned about his left flank pain. EKG interpreted by myself independently demonstrates normal sinus rhythm at 87 bpm without ectopy or acute ST changes. No STEMI. Given his allergies he was administered Dilaudid 0.5 mg as mentioned previously. I reviewed his laboratory work and he is neutropenic at 3.4 which I find nonspecific, hemoglobin normal at 13.9, platelet count low at 77. This is a chronic thrombocytopenia. I do not feel he requires transfusion. His electrolyte panel shows potassium low at 3.2 which I think is nonspecific as well. This was replaced orally with 40 mill equivalents. Urinalysis is negati ve for infection or blood, I do not feel antibiotics are indicated. CT of the abdomen and pelvis without contrast shows no evidence of ureteral stone, no reason for his flank pain. He was given additional Dilaudid 0.5 mg. I do not feel narcotic pain medications are indicated as an outpatient. While I am unsure as to the cause of his flank pain, I do not feel he requires observation or admission. He will follow-up with his primary care provider. Return instructions to the emergency department were reviewed. Disposition is discharged home in stable condition. History & Record Review Discussion w/independent historian: Patient Additional record(s) reviewed:: Prior ED visit and Prior labs Lab Data Attestation: I reviewed the patient's lab results. Labs: Laboratory Results - last 24 hr 06/14/23 06/14/23 19:35 20:12 WBC 3.4 L RBC 4.51 L Hgb 13.9 Hct 40.9 MCV 90.7 MCH 30.8 MCHC 34.0 RDW Std Deviation 48.4 H RDW Coeff of Shlomo 14.5 Plt Count 77 L MPV 12.8 H Immature Gran % (Auto) 0.300 Neut % (Auto) 77.4 H Lymph % (Auto) 14.1 L [place] % (Auto) 7.3 Eos % (Auto) 0.6 Baso % (Auto) 0.3 Absolute Neuts (auto) 2.6 Absolute Lymphs (auto) 0.48 L Nucleated RBC % 0 Differential Comment SCANNED Sodium 139 Potassium 3.2 L Chloride 107 Carbon Dioxide 26.0 Anion Gap 6 BUN 8 Creatinine 0.90 Estim Creat Clear Calc 105.83 Est GFR (MDRD) Af Amer 118 Est GFR (MDRD) Non-Af 98 BUN/Creatinine Ratio 8.9 L Glucose 102 Calcium 8.8 Urine Color Yellow Urine Clarity Clear Urine pH 6.5 Ur Specific [place] 1.015 Urine Protein 30 H Urine Glucose (UA) Normal Urine Ketones Negative Urine Occult Blood 10 H Urine Nitrite Negative Urine Bilirubin Negative Urine Urobilinogen Normal Ur Leukocyte Esterase Negative Urine RBC 0 SEEN Urine WBC 0 SEEN Ur Squamous Epith Cells 0 SEEN Urine Bacteria 0 SEEN Urine Mucus 0 SEEN Radiography Diagnostic Testing: Clinical Impression(s) from Imaging Studies Abdomen/Pelvis CT 06/14/23 19:24 IMPRESSION: No stones or hydronephrosis. No mass or obstruction. Splenomegaly. Electronically Signed: Rl Patrick MD at 21:52 EST Reading Location ID and State: [address] [place] [address] , Service support , Discharge Plan Triage Chief Complaint: Flank Pain ED Provider: Nikko Callejas Dx/Rx/DC Orders Clinical Impression: Acute left flank pain, Neutropenia, Hypokalemia Instructions: ED Flank Pain, Uncertain Cause, ED Hypokalemia Prescriptions: No Action sertraline 100 MG tablet 100 mg PO DAILY Patient Comments: depression metoprolol succinate 200 mg Tablet Extended Release 24 Hr 200 mg PO DAILY lisinopril 40 mg Tablet 40 mg PO DAILY ondansetron 4 mg tablet,disintegrating 4 mg PO Q8H PRN (Reason: nausea and vomiting) Qty: 10 0RF oxycodone-acetaminophen [Percocet] 5-325 mg tablet 1 tab PO Q6H 3 Days Qty: 12 0RF cefdinir 300 mg capsule 300 mg PO BID Qty: 14 0RF ondansetron [ondansetron] 4 mg tablet,disintegrating 4 mg PO Q8H PRN PRN (Reason: Nausea) Qty: 10 0RF dicyclomine 10 mg capsule 20 mg PO TIDAC Qty: 20 0RF Primary Care Provider: Ghassan Coronado Referrals: Ghassan Coronado MD [Primary Care Provider] - 3-5 Days if not improving Disposition Disposition: Home, Self Care
[2023-06-14 19:41] VITALS: BP 185/121; PULSE 96; RESP 16; TEMP 36.3; O2SAT 95; O2SAT 96
[2023-06-14 19:49] LABS: Absolute Lymphocyte Count 0.48 X10^3/uL (0.83-4.51); Absolute Neutrophil Count 2.6 X10^3/uL (2.0-7.7); Basophil# 0.01 X10^3/uL; Basophil% 0.3 % (0-1); Eosinophil# 0.02 X10^3/uL; Eosinophils% 0.6 % (0-5); Hematocrit 40.9 % (40-54); Hemoglobin 13.9 g/dL (13.0-16.5); Lymphocyte # 0.48 X10^3/ul (0.83-4.51); Lymphocyte % 14.1 % (19-41); Mean Corpuscular Hgb 30.8 pg (27.0-32.0); Mean Corpuscular Volume 90.7 fL (80-94); Mean Platelet Vol. 12.8 fl (6.2-12.0); Monocyte# 0.25 X10^3/uL; Monocyte% 7.3 % (0-10); NRBC Flagged by Analyzer 0 % (0-5); Neutrophil # 2.64 X10^3/uL (2.7-7.7); Neutrophil % 77.4 % (47-70); POSITIVE COUNT YES; POSITIVE DIFFERENTIAL YES; Platelet Count 77 K/mm3 (150-450); RBC Distribution Width CV 14.5 % (11.6-14.6); RBC Distribution Width SD 48.4 fl (35.1-43.9); Red Blood Count 4.51 M/mm3 (4.6-6.2); White Blood Count 3.4 K/mm3 (4.4-11.0)
[2023-06-14 19:50] LABS: Differential Indicated SCAN CRITERIA MET
--- NOTE | 2023-06-14 20:00 | EKG12_ITS ---
Test Reason : CP Blood Pressure : / mmHG Vent. Rate : 087 BPM Atrial Rate : 087 BPM P-R Int : 196 ms QRS Dur : 082 ms QT Int : 366 ms P-R-T Axes : 063 054 091 degrees QTc Int : 440 ms Normal sinus rhythm Possible Left atrial enlargement Nonspecific ST and T wave abnormality Abnormal ECG Confirmed by CORY GREY, ANDRES ([id number]), fashion editor COURTNEY BROUSSARD ([id number]) on 06/15/2023 9:37:13 AM Referred By: Confirmed By:ANDRES RAY MD
[2023-06-14 20:01] LABS: Anion Gap 6 (5-15); BUN 8 mg/dL (7-18); BUN/Creat Ratio 8.9 RATIO (10-20); Calcium,Total 8.8 mg/dL (8.5-10.1); Chloride 107 mmol/L (98-107); EST Glomerular Filtration Rate 98 mL/min (>60); Est Glom Filt Rate - Afr Amer 118 mL/min (>60); Estimated Creatinine Clearance 105.83 ml/min; Glucose 102 mg/dL (74-106); Potassium 3.2 mmol/L (3.5-5.1); Sodium Level 139 mmol/L (136-145)
[2023-06-14] MEDS: 0.9% Normal Saline (1000mL) 1,000 ML 250 ML IV (20:05)
[2023-06-14] MEDS: HYDROmorphone 0.5 MG/0.5 ML SYRINGE IV ×2 (20:05→21:06)
[2023-06-14] MEDS: Ondansetron 4 MG/2 ML Vial IV (20:06)
[2023-06-14 20:18] LABS: Bacteria 0 SEEN /hpf (None Seen); Mucous, Urine 0 SEEN /hpf (<or=2+); Red Blood Cells-Urine 0 SEEN /hpf (0-5); Squamous Epithelial Cells - UA 0 SEEN /hpf (0-5); White Blood Cells 0 SEEN /hpf (0-5)
[2023-06-14 20:22] LABS: Color, Urine Yellow (Yellow); Glucose, Dipstick Normal (Normal); Ketone-Dipstick Negative (Negative); Leukocyte Esterase-Dipstick Negative /ul (Negative); Nitrite-Dipstick Negative (Negative); Occult Blood-Urine 10 /ul (Negative); Protein-Dipstick 30 mg/dl (Negative); Specific Gravity, Urine 1.015 (1.002-1.030); Urine Bilirubin Dipstick Negative (Negative); Urine Clarity Clear (Clear); Urine Urobilinogen Normal (Normal); Urine pH 6.5 (5.0 - 8.0)
[2023-06-14 20:43] LABS: Differential Comment SCANNED
[2023-06-14 21:00] VITALS: BP 171/108; PULSE 93; RESP 16; O2SAT 95
[2023-06-14 22:20] VITALS: BP 174/120; RESP 18; O2SAT 95
[2023-06-14] MEDS: Potassium Chloride Oral Tablet 20 MEQ 40 MEQ PO (22:24)
[2023-06-18 09:35] LABS: Pathologist Review Reviewed
== END 2023-06-14 22:30 | disposition home or self-care (01) ==
PROVIDERS: Emergency Provider Emergency Medicine; PCP Family Medicine; Visit Provider Emergency Medicine
DX: R10.9 Unspecified abdominal pain (principal); D70.9 Neutropenia, unspecified; Z87.891 Personal history of nicotine dependence; E87.6 Hypokalemia; I10 Essential (primary) hypertension; R11.0 Nausea; Z90.49 Acquired absence of other specified parts of digestive tract
CPT/HCPCS: 74176; 80048; 81001; 85025; 93005; 96361; 96374; 96375; 96376; 99282; J7030; J2405